=== PATIENT | male | born 1940 | race Hispanic/Latino ===

== ENCOUNTER 2018-06-21 12:40 | Emergency (ER) | payer OTHER, SELFPAY ==
--- NOTE | 2018-06-21 14:52 | RAD REPORT ---
EXAM DESCRIPTION: RAD - Chest Pa And Lat (2 Views) - 06/21/2018 2:34 pm CLINICAL HISTORY: Chest pain COMPARISON: None. TECHNIQUE: PA and lateral views of the chest were obtained. FINDINGS: The lungs are fibrotic. Prominent interstitial pattern is favored to be baseline rather th an interstitial edema or infiltrate. No large or suspicious mass. Small nipple shadows are seen. No f ailure or volume overload. Heart size is normal and central vasculature is within normal limits. N o pleural effusion or pneumothorax seen. No acute bony finding noted. No aortic abnormality. IMPRESSION: Fibrotic lung pattern with no acute cardiopulmonary process.
--- NOTE | 2018-06-21 14:53 | RAD REPORT ---
EXAM DESCRIPTION: RAD - Foot Left 3 View - 06/21/2018 2:34 pm CLINICAL HISTORY: Foot pain, toe infection COMPARISON: None. FINDINGS: No fracture, dislocation or periosteal reaction. No acute or destructive bony process. IP joint space narrowing present without spurring or erosive change. Mild first MTP joint space narrowi ng also without spurring or erosion. No significant tarsal or metatarsal finding. Patient has a small plantar spur. No air or foreign body in the soft tissues. IMPRESSION: Degenerative changes are present in the IP joints of the foot and the first MTP joint. No acute or destructive bone process seen.
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
--- NOTE | 2018-06-22 07:49 | EKG ---
Test Date: 2018-06-21 Test Time: 14:01:12 Coat Fitter: LUIS MEASUREMENT RESULTS: Intervals: Rate: 73 [place]: 138 QRSD: 90 QT: 424 QTc: 467 [place]: P: 45 NJ: 138 QRS: -11 T: -14 INTERPRETIVE STATEMENTS: Normal sinus rhythm Normal ECG No previous ECG available for comparison Electronically Signed On 06-22-18 07:46:20 GARMENT FOLDER by Kavin Middleton
== END 2018-06-21 15:37 | disposition home or self-care (01) ==
LOC: ER 12:40
DX: S90.112A Contusion of left great toe without damage to nail, initial encounter (principal); V59.40XA Driver of pick-up truck or van injured in collision with unspecified motor vehicles in traffic accident, initial encounter; I10 Essential (primary) hypertension; E11.9 Type 2 diabetes mellitus without complications; E78.5 Hyperlipidemia, unspecified; F03.90 Unspecified dementia, unspecified severity, without behavioral disturbance, psychotic disturbance, mood disturbance, and anxiety
CPT/HCPCS: 71046; 93005; 99284

== ENCOUNTER 2019-09-24 12:42 | Emergency (ER) | payer OTHER ==
[2019-09-24 15:21] VITALS: BP 148/85; TEMP 97.8; O2SAT 100
== END 2019-09-24 15:17 | disposition home or self-care (01) ==
LOC: ER 12:42
DX: S00.93XA Contusion of unspecified part of head, initial encounter (principal); S50.312A Abrasion of left elbow, initial encounter; W01.0XXA Fall on same level from slipping, tripping and stumbling without subsequent striking against object, initial encounter; Y93.01 Activity, walking, marching and hiking; Y92.008 Other place in unspecified non-institutional (private) residence as the place of occurrence of the external cause; I10 Essential (primary) hypertension; E11.9 Type 2 diabetes mellitus without complications; E78.5 Hyperlipidemia, unspecified; F03.90 Unspecified dementia, unspecified severity, without behavioral disturbance, psychotic disturbance, mood disturbance, and anxiety
CPT/HCPCS: 70450; 72125; 99284

== ENCOUNTER 2019-10-21 16:28 | Emergency (ER) | payer OTHER ==
--- NOTE | 2019-10-21 17:07 | RAD REPORT ---
EXAM DESCRIPTION: CT - Head Brain Wo Cont - 10/21/2019 4:50 pm CLINICAL HISTORY: HEADACHE, fall COMPARISON: Head C Spine Mpr Wo Con dated 09/24/2019 TECHNIQUE: Axial 5 mm thick images of the head were obtained without IV contrast. All CT scans are performed using dose optimization technique as appropriate and may include automated exposure control or mA/KV adjustment according to patient size. FINDINGS: No intracranial hemorrhage, mass, edema or shift of mid-line structures. No acute infarcti on changes seen. No cortical edema or sulcal effacement. Moderate severity atrophy and chronic ischem ic changes are present. Ventricles are in proportion. Arterial and physiologic calcifications are pre sent. No globe or orbital content abnormality. Mastoid air cells and visualized portions of the paranasal sinuses are clear. No acute bony findings. IMPRESSION: Moderate severity atrophy and chronic ischemic change with no acute intracranial finding . Findings are similar to September 23.
--- NOTE | 2019-10-21 17:42 | ER ---
Nurse's Notes [facility] Name: Nash Bach Sr Age: 79 yrs Sex: Male : 1940 Arrival Date: 10/21/2019 Time: 16:31 Bed 18 Private MD: Diagnosis: Fall on same level from slipping, tripping and stumbling;Unspecified injury of head Presentation: 10/20 16:39 Chief complaint: Patient states: Hit head during fall today. Denies LOC, no pain. ll1 Slight left buttock pain also. Transferred well. Coronavirus screen: Proceed with normal triage. Patient denies a cough. Patient denies shortness of breath or difficulty breathing. Patient denies measured and/or subjective temperature greater than 100.4F prior to today's visit. Patient denies travel on a cruise ship or to a country the [facility] currently lists as an affected area. Patient denies contact with known and/or suspected case of COVID-19. Ebola Screen: Patient denies travel to an Ebola-affected area in the 21 days before illness onset. Initial Sepsis Screen: Does the patient meet any 2 criteria? HR > 90 bpm. No. Patient's initial sepsis screen is negative. Does the patient have a suspected source of infection? No. Patient's initial sepsis screen is negative. Risk Assessment: Do you want to hurt yourself or someone else? Patient reports no desire to harm self or others. Onset of symptoms was October 21, 2019. 16:39 Method Of Arrival: Wheelchair ll1 16:39 Acuity: HILDA 3 ll1 16:42 Note trauma alert called due to age and head injury. No known blood thinners. Mechanism ll1 of Injury: Fall. 16:45 Care prior to arrival: None. Mechanism of Injury: Fall. Trauma event details: Injury ll1 occurred in the [facility]. Triage Assessment: 16:46 General: Appears in no apparent distress. Behavior is calm, cooperative, appropriate ll1 for age. Pain: Denies pain. Neuro: Level of Consciousness is awake, alert, obeys commands, Oriented to person, place, time, situation, Appropriate for age Trampoline Team Coach are weak bilaterally Moves all extremities. Full function Weakness Gait is unsteady, uses cane. Speech is normal, Facial symmetry appears normal, Pupils are PERRLA, Reports tenderness to scalp. s/p fall. Denies blurred vision dizziness, headache photophobia. Cardiovascular: No deficits noted. Respiratory: No deficits noted. GI: No deficits noted. Musculoskeletal: Circulation, motion, and sensation intact. Capillary refill < 3 seconds, Tenderness Reports pain in left buttock area. Injury Description: Head injury. Trauma Activation: Alert Physician: ED Physician; Name: nieto. henry; Notified At: ; Arrived At: Physician: General Surgeon; Name: ; Notified At: ; Arrived At: Physician: Radiology; Name: ; Notified At: ; Arrived At: Physician: Respiratory; Name: ; Notified At: ; Arrived At: Physician: Lab; Name: ; Notified At: ; Arrived At: 16:45 JOHNATHON Tracey ll1 Historical: - Allergies: 16:41 No Known Allergies; ll1 - PMHx: 16:41 Hypertension; Hyperlipidemia; Diabetes - NIDDM; Dementia; ll1 - PSHx: 16:41 Cholecystectomy; eye sx, back sx, prostate surgery; ll1 - Immunization history:: Adult Immunizations up to date. - Social history:: Smoking status: Patient/guardian denies using tobacco, the patient reports quitting approximately 20 years ago, Patient/guardian denies using alcohol, the patient reports quitting approximately [address] drugs. - Immunization history: Last tetanus immunization:. Screenin:43 Abuse screen: Denies threats or abuse. Nutritional screening: No deficits noted. ll1 Tuberculosis screening: No symptoms or risk factors identified. Fall Risk Fall in past 12 months (25 points). Ambulatory Aid- Crutches/Cane/Walker (15 pts). Gait- Weak (10 pts.). Total West Fall Scale indicates High Risk Score (45 or more points). Fall prevention measures have been instituted. Side Rails Up X 2 Placed Close to Nursing Station Frequent Obs/Assessments Occuring As available patient and family educated on Fall Prevention Program and Strategies. Primary Survey: 16:44 NO uncontrolled hemorrhage observed. A: The patient is alert. Airway: patent, No ll1 supplemental oxygen in use on arrival. Trachea midline. Breathing/Chest: Respiratory pattern: regular, Respiratory effort: spontaneous, unlabored, Breath sounds: clear, Chest inspection: symmetrical rise and fall of the chest. Circulation: Pulses: palpable right radial artery and left radial artery. Skin color: pink, Skin temperature: warm. Disability Alert. Exposure/Environment: A warming method has been applied: A warm blanket has been provided to the patient. 16:52 Reassessment. vc 16:56 Reassessment Airway Airway Patent Breathing/Chest Respiratory pattern Regular vc Respiratory effort Spontaneous Breath sounds Clear Chest inspection Symmetrical Circulation Heart tones Present Color [place] Temperature Warm Disability Alert. Assessment: 17:01 General: Appears in no apparent distress. uncomfortable, Behavior is calm, cooperative, vc appropriate for age. Pain: Complains of pain in left arm, buttocks and back of head. Neuro: Level of Consciousness is awake, alert, obeys commands, Oriented to person, place, time, situation, Appropriate for age. Cardiovascular: Capillary refill < 3 seconds Patient's skin is warm and dry. Respiratory: Airway is patent Respiratory effort is even, unlabored, Respiratory pattern is regular, symmetrical. GI: No signs and/or symptoms were reported involving the gastrointestinal system. : No signs and/or symptoms were reported regarding the genitourinary system. Derm: Skin is intact, is healthy with good turgor, Skin temperature is warm. 18:00 Reassessment: Patient appears in no apparent distress at this time. Patient and/or vc family updated on plan of care and expected duration. Pain level reassessed. Patient is alert, oriented x 3, equal unlabored respirations, skin warm/dry/pink. Patient has shuffling gate and is very unstable on his feet, will transfer to vehicle in wheelchair. Vital Signs: 16:39 BP 141 / 76; Pulse 100; Resp 18; Temp 98.7; Pulse Ox 100% ; Pain 0/10; ll1 17:45 BP 141 / 71; Pulse 77; Resp 18; Pulse Ox 100% on R/A; vc [place] Coma Score: 16:45 Eye Response: spontaneous(4). Verbal Response: oriented(5). Motor Response: obeys ll1 commands(6). Total: 15. Trauma Score (Adult): 16:45 Eye Response: spontaneous(1); Verbal Response: oriented(1); Motor Response: obeys ll1 commands(2); Systolic BP: > 89 mm Hg(4); Respiratory Rate: 10 to 29 per min(4); [place] Score: 15; Trauma Score: 12 ED Course: 16:31 Patient arrived in ED. mr 16:32 Francisco Fernández, DEAN is PHCP. pm1 16:32 Jordy Snyder MD is Attending Physician. pm1 16:40 Triage completed. ll1 16:42 Keira Cruz, RN is Primary Nurse. ph 16:42 Arm band placed on Patient placed in an exam room, on a stretcher. ll1 16:48 Patient has correct armband on for positive identification. Placed in gown. Bed in low ll1 position. Call light in reach. Side rails up X2. 16:48 Patient maintains SpO2 saturation greater than 95% on room air. ll1 16:50 CT Head Brain wo Cont In Process Unspecified. EDMS 16:58 Thermoregulation: warm blanket given to patient. vc 18:07 No provider procedures requiring assistance completed. Patient did not have IV access vc during this emergency room visit. Administered Medications: No medications were administered Intake: 18:09 PO: 0ml; IV: 0ml; Total: 0ml. vc Outcome: 17:42 Discharge ordered by . pm1 18:07 Discharged to home via wheelchair. vc 18:07 Condition: good 18:07 Discharge instructions given to patient, family, Instructed on discharge instructions, follow up and referral plans. Demonstrated understanding of instructions, follow-up care. 18:09 Patient's length of stay was not longer than 2 hours. vc 18:10 Patient left the ED. vc Signatures: Dispatcher [employer] [facility] Anne Marie Pittman mr CruzKeira, ERIKA JAMES Francisco Fernández, DEAN DRYWALL HANGER FRAMER pm1 Nimco Peoples RN RN vc Lewis, Lynsay, RN RN [facility]
--- NOTE | 2019-10-21 17:43 | EDPHYS ---
Physician Documentation [facility] Name: Nash Bach Sr Age: 79 yrs Sex: Male : 1940 Arrival Date: 10/21/2019 Time: 16:31 Bed 18 Private MD: ED Physician Jordy Snyder HPI: 10/20 16:37 This 79 yrs old Male presents to ER via Wheelchair with complaints of Fall pm1 Injury. 16:37 Details of fall: The patient fell from an upright position, while standing up from bent pm1 position. Onset: The symptoms/episode began/occurred today. Associated injuries: The patient sustained injury to the head, pain, back of head. Patient was bending down in the bathroom and he stood up and then kept going backwards. hit his head against the floor. Presenting with pain to back of his head. No LOC, neck pain, nausea, vomiting. No pain or injury elsewhere. Historical: - Allergies: 16:41 No Known Allergies; ll1 - PMHx: 16:41 Hypertension; Hyperlipidemia; Diabetes - NIDDM; Dementia; ll1 - PSHx: 16:41 Cholecystectomy; eye sx, back sx, prostate surgery; ll1 - Immunization history:: Adult Immunizations up to date. - Social history:: Smoking status: Patient/guardian denies using tobacco, the patient reports quitting approximately 20 years ago, Patient/guardian denies using alcohol, the patient reports quitting approximately [address] drugs. - Immunization history: Last tetanus immunization:. ROS: 16:37 Constitutional: Negative for fever, chills, and weight loss, Neck: Negative for injury, pm1 pain, and swelling, Cardiovascular: Negative for chest pain, palpitations, and edema, Respiratory: Negative for shortness of breath, cough, wheezing, and pleuritic chest pain, Abdomen/GI: Negative for abdominal pain, nausea, vomiting, diarrhea, and constipation, Back: Negative for injury and pain, MS/Extremity: Negative for injury and deformity, Skin: Negative for injury, rash, and discoloration. 16:37 Neuro: Positive for headache, Negative for altered mental status, dizziness, loss of consciousness, numbness, tingling, weakness. Exam: 16:37 Constitutional: This is a well developed, well nourished patient who is awake, alert, pm1 and in no acute distress. Head/Face: Normocephalic, atraumatic. Neck: Trachea midline, no thyromegaly or masses palpated, and no cervical lymphadenopathy. Supple, full range of motion without nuchal rigidity, or vertebral point tenderness. No Meningismus. Chest/axilla: Normal chest wall appearance and motion. Nontender with no deformity. No lesions are appreciated. 16:37 Back: No spinal tenderness. No costovertebral tenderness. Full range of motion. 16:37 Skin: Warm, dry with normal turgor. Normal color with no rashes, no lesions, and no evidence of cellulitis. MS/ Extremity: Pulses equal, no cyanosis. Neurovascular intact. Full, normal range of motion. 16:37 Cardiovascular: Exam negative for acute changes, Rate: normal, Rhythm: regular, Pulses: no pulse deficits are appreciated. 16:37 Respiratory: Exam negative for acute changes, respiratory distress, shortness of breath. 16:37 Abdomen/GI: Exam negative for acute changes, Inspection: abdomen appears normal, Palpation: abdomen is soft and non-tender, in all quadrants. 16:37 Neuro: Exam negative for acute changes, Orientation: is normal, Motor: is normal, moves all fours. Vital Signs: 16:39 BP 141 / 76; Pulse 100; Resp 18; Temp 98.7; Pulse Ox 100% ; Pain 0/10; ll1 17:45 BP 141 / 71; Pulse 77; Resp 18; Pulse Ox 100% on R/A; vc Anil Coma Score: 16:45 Eye Response: spontaneous(4). Verbal Response: oriented(5). Motor Response: obeys ll1 commands(6). Total: 15. Trauma Score (Adult): 16:45 Eye Response: spontaneous(1); Verbal Response: oriented(1); Motor Response: obeys ll1 commands(2); Systolic BP: > 89 mm Hg(4); Respiratory Rate: 10 to 29 per min(4); Anil Score: 15; Trauma Score: 12 MDM: 16:34 Patient medically screened. pm1 17:41 Data reviewed: vital signs. Data interpreted: Pulse oximetry: on room air is 100 %. pm1 Interpretation: normal. Counseling: I had a detailed discussion with the patient and/or guardian regarding: the historical points, exam findings, and any diagnostic results supporting the discharge/admit diagnosis, radiology results, the need for outpatient follow up, to return to the emergency department if symptoms worsen or persist or if there are any questions or concerns that arise at home. 10/20 16:37 Order name: CT Head Brain wo Cont; Complete Time: 17:39 pm1 Administered Medications: No medications were administered Disposition: 18:19 Co-signature as Attending Physician, Jordy Snyder MD. rn Disposition: 10/21/19 17:42 Discharged to Home. Impression: Unspecified injury of head, Fall on same level from slipping, tripping and stumbling. - Condition is Stable. - Discharge Instructions: Head Injury, Adult, Fall Prevention in the Home. - Medication Reconciliation Form, Thank You Letter, Antibiotic Education, Prescription Opioid Use form. - Follow up: Emergency Department; When: As needed; Reason: Worsening of condition. Follow up: Private Physician; When: 2 - 3 days; Reason: Recheck today's complaints, Continuance of care, Re-evaluation by your physician. - Problem is new. - Symptoms have improved. Signatures: Dispatcher [employer] EDMS Jordy Snyder MD MD rn Francisco Fernández, CLOUD SUBJECT MATTER EXPERT CLOUD SUBJECT MATTER EXPERT pm1 Nimco Peoples RN RN vc Lewis, Lynsay, RN RN ll1 Corrections: (The following items were deleted from the chart) 18:10 17:42 10/21/2019 17:42 Discharged to Home. Impression: Unspecified injury of headFall vc on same level from slipping, tripping and stumbling. Condition is Stable. Forms are Medication Reconciliation Form, Thank You Letter, Antibiotic Education, Prescription Opioid Use. Follow up: Emergency Department; When: As needed; Reason: Worsening of condition. Follow up: Private Physician; When: 2 - 3 days; Reason: Recheck today's complaints, Continuance of care, Re-evaluation by your physician. Problem is new. Symptoms have improved. pm1
[2019-10-21 18:16] VITALS: BP 141/76; TEMP 98.7; O2SAT 100
== END 2019-10-21 18:10 | disposition home or self-care (01) ==
LOC: ER 16:28
DX: S09.90XA Unspecified injury of head, initial encounter (principal); F03.90 Unspecified dementia, unspecified severity, without behavioral disturbance, psychotic disturbance, mood disturbance, and anxiety; W01.198A Fall on same level from slipping, tripping and stumbling with subsequent striking against other object, initial encounter; Y93.9 Activity, unspecified; Y92.9 Unspecified place or not applicable; I10 Essential (primary) hypertension
CPT/HCPCS: 70450; 99284

== ENCOUNTER 2020-07-16 10:51 | Emergency (ER) | payer OTHER ==
--- OUTSIDE RECORDS SUMMARY | 2020-07-16 10:55 | XMS REPORT | Continuity of Care Document ---
:1940 Author Organization [facility] t Address [address] [place] [address] Care Team Providers Name Role Phone Doctor Unassigned, Olivarez Attending Clinician Unavailable Norma CORONADO, Gene Attending Clinician Problems Condition Condition Condition Status Onset Resolution Last Treating Co mments Source Name Details Category Date Date Treatment Clinician Date Benign Diagnosis Active 2018-03-07 Mem oria prostatic 02:52:31 l hyperplasi Benign Herm natividad a with prostatic lower hyperplasi urinary a with tract lower symptoms urinary tract symptoms Active Diagnosis 03/07/2018 Sukhwinder Pretty DM w/o Diagnosis Active 2018-03-07 Mem oria complicati 02:52:31 l on type DM w/o [place] II, 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, uncontroll ed Active Diagnosis 03/07/2018 Sukhwinder Pretty Nocturia Diagnosis Active 2018-03-07 M emoria 02:52:31 l Nocturia Beni n Active Diagnosis 03/07/2018 Ahmed Dextermed Anxiety Diagnosis Active 2018-03-07 Me moria 02:52:31 l Anxiety [place] Active Diagnosis 03/07/2018 Ahmed Ahmed Pure Diagnosis Active 2018-03-07 Mem oria hyperchole 02:52:31 l sterolemia Pure Beni n hyperchole sterolemia Active Diagnosis 03/07/2018 Ahmed Dextermed Atheroscle Diagnosis Active 2018-03-07 Memoria r-limb&cla 02:52:31 l udic [place] Atheroscle r-limb&cla udic Active Diagnosis 03/07/2018 Sukhwinder Pretty Other Diagnosis Active 2018-03-07 Mem oria symptoms 02:52:31 l involving Other Beni n cardiovasc symptoms ular involving system cardiovasc ular system Active Diagnosis 03/07/2018 Ahmed Ahmed Allergies, Adverse Reactions, Alerts Allergy Allergy Status Severity Reaction(s) Onset Inactive Treating Comm ents Source Name Type Date Date Clinician Danielle Santos Active Info Not Yannick christ Available 01-02 l 00:00: Medications Ordered Filled Start Stop Current Ordering Indication Dosage Frequency Signature Comments Components Source Medication Medication Date Date Medication? Clinician (SIG) Name Name Lisinopril Yes Ahmed 1 tablet Me moria 03-07 Ahmed l 02:52: Metformin Yes Ahmed 1 tablet Mem oria HCl 03-07 Ahmed with meals l 02:52: Amlodipine Yes Ahmed 1 tablet Me moria Besylate 03-07 Ahmed l 02:52: Atorvastati Yes Ahmed 1 tablet M emoria n Calcium 03-07 Ahmed l 02:52: Sertraline Yes Ahmed 1 tablet Me moria HCl 03-07 Ahmed l 02:52: Vitamin D3 Yes Ahmed not Memori a Complete 03-07 Ahmed defined l 02:52: Donepezil Yes Ahmed 1 tablet Mem oria Hydrochlori 03-07 Ahmed at bedtime l de 02:52: Aspirin Yes Ahmed 1 tablet Memor ia 03-07 Ahmed l 02:52: Tamsulosin Yes Ahmed not Memori a HCl 03-07 Ahmed defined l 02:52: Cyanocobala Yes Ahmed 1 tablet M emoria min 03-07 Ahmed l 02:52: GlipiZIDE Yes Ahmed 1 tablet Mem oria 03-07 Ahmed l 02:52: Melatonin 0 Yes Ahmed 1 tablet Mem oria 03-07 Ahmed at bedtime l 02:52: as needed with food Finasteride Yes Ahmed 1 tablet M emoria 03-07 Ahmed l 02:52: Yohan 31 Vital Signs Vital Name Observation Time Observation Value Comments Source Weight 2018-01-02 16:15:00 [facility] [place] Heart Rate 2018-01-02 16:15:00 [facility] [place] Diastolic (mm Hg) 2018-01-02 16:15:00 Mem orial [place] Systolic (mm Hg) 2018-01-02 16:15:00 Yannick rial [place] Weight 2017-12-18 20:15:00 [facility] [place] Heart Rate 2017-12-18 20:15:00 [facility] [place] Diastolic (mm Hg) 2017-12-18 20:15:00 Mem orial [place] Systolic (mm Hg) 2017-12-18 20:15:00 Yannick rial [place] Procedures This patient has no known procedures. Encounters Start End Encounter Admission Attending Care Care Encounter Source Date/Time Date/Time Type Type Clinicians Facility Department ID 2020-07-06 2020-07-06 Orders Doctor LOY [id number] 00:00:00 00:00:00 Only Unassigned, JOSÉ MANUEL [id number] Olivarez [facility] [id number] [facility] 2020-03-04 2020-03-04 Telephone [facility] [id number] 00:00:00 00:00:00 Karthikeyan [place] [id number] [place] [id number] Professio [id number] [address] 2020-03-03 2020-03-03 Office [facility] [id number] 08:02:33 09:14:39 Visit Karthikeyan Mukund [place] [id number] [place] [id number] Professio [id number] [address] 2018-01-02 2018-01-02 Outpatient Sukhwinder Pretty [id number] [facility] 11:15:00 11:15:00 [facility] 2017-12-18 2017-12-18 Outpatient Sukhwinder Pretty [id number] [facility] 15:15:00 15:15:00 [facility] [place] Results This patient has no known results.
--- OUTSIDE RECORDS SUMMARY | 2020-07-16 10:55 | XMS REPORT | Continuity of Care Document ---
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 DM w/o complication Active Diagnosis 03/07/2018 Ahmed type II, uncontrolled Ahmed Nocturia Active Diagnosis 03/07/2018 Ahmed Ahmed Anxiety Active Diagnosis 03/07/2018 Ahmed Ahmed Pure Active Diagnosis 03/07/2018 Ahmed hypercholesterolemia Ahmed Atheroscler-limb&claudi Active Diagnosis 03/07/2018 Ahmed c Ahmed Other symptoms Active Diagnosis 03/07/2018 [facility] Medications Medication Details Route Status Patient Ordering Order Source Instructions Provider Date Lisinopril 1 tablet Orally [facility] 10 MG [facility] Metformin HCl 1 tablet Orally Active 1000 MG Orally Ahmed Ah med with meals Twice a day Ahmed Amlodipine 1 tablet [facility] Bes[facility] Once a day Ahmed Atorvastatin 1 tablet [facility] Calcium Once a day Ahmed Sertraline HCl 1 tablet Orally Active 100 MG Orally Ahmed med Once a day Ahmed Vitamin D3 not Orally Active - Orally Ahmed Ahmed Complete defined Ahmed Donepezil 1 tablet [facility]ally Active 10 [facility] Hydrochloride at bedtime Once a day Ahme d Aspirin 1 tablet Orally Active 81 MG Orally Ahmed Ahmed Once a day Ahmed Tamsulosin HCl not Orally Active 0.4 MG Orally Ahmed m ed defined Ahmed Cyanocobalamin 1 tablet Orally Active 1000 MCG Orally Ahmed Ahmed Once a day Ahmed GlipiZIDE 1 tablet Orally Active 5 MG Orally Ahmed Ahmed Once a day Ahmed Melatonin 1 tablet Orally Active 5 MG Orally Ahmed Ahmed at bedtime Once a day Ahmed as needed with food Finasteride 1 tablet Orally Active 5 MG Orally Ahmed med Once a day Ahmed Allergies, Adverse Reactions, Alerts Substance Category Reaction Severity Reaction Status Date Comments S ource type Reported N.K.D.A. Adverse Info Not Adverse Active Ahme d Reaction Available Reaction 8 Ahme d Immunizations No Data Provided for This Section Results No Data Provided for This Section Pathology Reports No Data Provided for This Section Diagnostic Reports No Data Provided for This Section Consultation Notes No Data Provided for This Section Discharge Summaries No Data Provided for This Section History and Physicals No Data Provided for This Section Vital Signs Vital Sign Value Date Comments Source Weight 147 01/02/2018 Ahmed Ahmed Heart Rate 72 01/02/2018 Ahmed Ahmed Diastolic (mm Hg) 80 01/02/2018 Ahmed Ahme d Systolic (mm Hg) 142 01/02/2018 Ahmed Ahmed Weight 150 12/18/2017 Ahmed Ahmed Heart Rate 74 12/18/2017 Ahmed Ahmed Diastolic (mm Hg) 66 12/18/2017 Ahmed Ahme d Systolic (mm Hg) 124 12/18/2017 Ahmed Ahmed Encounters No Data Provided for This Section Procedures No Data Provided for This Section Assessment and Plan No Data Provided for This Section Plan of Care No Data Provided for This Section Social History No Data Provided for This Section Family History No Data Provided for This Section Advance Directives No Data Provided for This Section Functional Status No Data Provided for This Section
--- OUTSIDE RECORDS SUMMARY | 2020-07-16 10:55 | XMS REPORT | Summary of Care ---
:1940 Author Organization [facility] - Health Address [address] [place] [address] Care Team Providers Name Role Phone Pcp, Patient Does Not Have A Primary Care Provider +[id number] Encounter Details Date Type Department Care Team Description 07/06/2020 Orders Only [facility] Doctor Unassigned, No [address] [facility] [place] [address] [address] [place] [address] Allergies No Known Allergiesdocumented as of this encounter (statuses as of 07/06/2020) Medications Medication Sig Dispensed Refills Start Date End Date Status amLODIPine 5 mg tablet TAKE ONE TABLET BY 0 02/03/20 20 Active MOUTH AT BEDTIME FOR HEART/BLOOD PRESSURE finasteride 5 mg TAKE ONE TABLET BY 0 08/13/2019 Active tablet MOUTH DAILY FOR PROSTATE. *DO NOT CRUSH* levoFLOXacin 500 mg SHERINE 1 TABLET BY 0 02/14/2020 Active tablet MOUTH ONCE DAILY FOR 7 DAYS lisinopriL 10 mg TAKE ONE TABLET BY 0 02/03/2020 Active tablet MOUTH EVERY DAY FOR HEART/ BLOOD PRESSURE metFORMIN 1,000 mg TAKE ONE TABLET BY 0 02/03/2020 Active tablet MOUTH TWICE A DAY *FOR DIABETES* oxybutynin 15 mg 24 hr TAKE ONE TABLET BY 0 08/30/19 20 Active tablet MOUTH TWICE A DAY FOR BLADDER. *DO NOT CRUSH* SERTraline 100 mg TAKE ONE AND 0 09/02/2019 Active tablet ONE-HALF TABLETS BY MOUTH EVERY MORNING documented as of this encounter (statuses as of 07/06/2020) Active Problems Not on filedocumented as of this encounter (statuses as of 07/06/2020) Social History Tobacco Use Types Packs/Day Years Used Date Never Smoker Smokeless Tobacco: Never Used Sex Assigned at Date Recorded Not on file documented as of this encounter Last Filed Vital Signs Not on filedocumented in this encounter Plan of Treatment Health Maintenance Due Date Last Done Comments DTaP,Tdap,and Td Vaccines (1 - 01/29/1959 Tdap) Zoster Recombinant Vaccine 01/29/1990 (SHINGRIX) (1 of 2) Medicare Wellness Visit 01/29/2005 PNEUMOCOCCAL VACCINES 65+ (1 of 1 01/29/2005 - PPSV23) INFLUENZA VACCINE (#1) 2020 03/28/2017, 03/29/2016, 04/14/2015, Additional history exists Depression Screening 03/03/2021 03/03/2020 documented as of this encounter Procedures Procedure Name Priority Date/Time Associated Diagnosis Comme nts COGNITIVE ASSESSMENT Routine 07/06/2020 12:01 AM EFFICIENCY MANAGER documented in this encounter Results Not on filedocumented in this encounter Insurance Payer Benefit Plan / Subscriber ID Effective Phone Address T ype Group Dates GLADYS NACHO/GUNNER [id number] 2020-[facility] documented as of this encounter
--- NOTE | 2020-07-16 11:50 | RAD REPORT ---
EXAM DESCRIPTION: CT - Head C Spine Mpr Wo Con - 07/16/2020 11:29 am CLINICAL HISTORY: Head and neck injury status post fall. Head and neck pain COMPARISON: September 2019 TECHNIQUE: Computed axial tomography of the head and cervical spine was obtained. Sagittal and coronal reconstruction was performed. All CT scans are performed using dose optimization technique as appropriate and may include automated exposure control or mA/KV adjustment according to patient size. FINDINGS: Cerebral and cerebellar atrophy. An intracranial bleed is not seen. Stable prominence of the ventricles. . An extra-axial fluid collec tion is not noted.Fluid within the visualized sinuses and mastoids is not seen A cervical fracture is not visualized. No dislocation is noted. IMPRESSION: No acute intracranial abnormality is seen. A cervical fracture is not visualized. If the patient continues to have symptoms to suggest intracra nial /spinal cord pathology then MRI would be recommended
[2020-07-16 16:27] LABS: Absolute Lymphocytes (CBC) 0.9 K/uL (0.7-4.9); Basophils % 0.3 % (0-1.3); Hematocrit 33.4 % (39.6-49.0); Lymphocytes % 12.6 % (15.3-44.8); MPV 8.4 fL (7.6-11.3); RBC Red Blood Cell Count 3.88 M/uL (4.33-5.43)
[2020-07-16 16:54] LABS: Potassium 3.2 mmol/L (3.5-5.1)
--- NOTE | 2020-07-16 17:41 | ER ---
Nurse's Notes [facility] Name: Nash Bach Sr Age: 80 yrs Sex: Male : 1940 Arrival Date: 07/16/2020 Time: 10:57 Bed 6 Private MD: Diagnosis: Other slipping, tripping and stumbling and falls;Superficial injury of head Presentation: 07/16 11:10 Chief complaint: Patient's son or daughter states: He had a fall last night, he's been ca1 falling a lot, he falls 3 - 4 times a week. He loses his balance a lot. 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 He fell last night, and again this morning. He hit his head this morning, he landed on the floor, landed on his back and hit his head. He c/o pain everywhere. I think more his back, his butt area and his head more. Pt is on ASA. 11:10 Method Of Arrival: Wheelchair ca1 11:14 Acuity: HILDA 2 ca1 11:14 Coronavirus screen: Client denies travel out of the [place] in the last 14 days. At this ca1 time, the client does not indicate any symptoms associated with coronavirus-19. Ebola Screen: Patient negative for fever greater than or equal to 101.5 degrees Fahrenheit, and additional compatible Ebola Virus Disease symptoms Patient denies exposure to infectious person. Patient denies travel to an Ebola-affected area in the 21 days before illness onset. No symptoms or risks identified at this time. Initial Sepsis Screen: Does the patient meet any 2 criteria? No. Patient's initial sepsis screen is negative. Does the patient have a suspected source of infection? No. Patient's initial sepsis screen is negative. Risk Assessment: Do you want to hurt yourself or someone else? Patient reports no desire to harm self or others. Onset of symptoms was July 16, 2020. 11:20 Care prior to arrival:. Care prior to arrival: None. Mechanism of Injury: Fall from ca1 standing position. Trauma event details: Injury occurred in the [facility], Injury occurred: at home. Injury occurred: July 16, 2020 Injury occurred at: 10:30. Triage Assessment: 11:17 General: Appears in no apparent distress. comfortable, Behavior is calm, cooperative. ca1 Neuro: Level of Consciousness is awake, alert, obeys commands, Oriented to person, situation. 17:45 Pain: Unable to use pain scale. Does not appear to understand pain scale. bp Trauma Activation: Alert Physician: ED Physician; Name: ; Notified At: ; Arrived At: Physician: General Surgeon; Name: ; Notified At: ; Arrived At: Physician: Radiology; Name: ; Notified At: ; Arrived At: Physician: Respiratory; Name: ; Notified At: ; Arrived At: Physician: Lab; Name: ; Notified At: ; Arrived At: Historical: - Allergies: 11:17 No Known Allergies; ca1 - PMHx: 11:17 Dementia; Diabetes - NIDDM; Hyperlipidemia; Hypertension; ca1 - PSHx: 11:17 Cholecystectomy; eye sx, back sx, prostate surgery; ca1 - Immunization history:: Pneumococcal vaccine is up to date, Flu vaccine is not up to date. - Social history:: Smoking status: Patient denies any tobacco usage or history of. - Immunization history: Last tetanus immunization: - up to date. Screenin:00 Abuse screen: Denies threats or abuse. Denies injuries from another. Tuberculosis bp screening: No symptoms or risk factors identified. 17:43 Nutritional screening: No deficits noted. Fall Risk Fall in past 12 months (25 points). bp Secondary diagnosis (15 points) dementia, IV access (20 points). Ambulatory Aid- None/Bed Rest/Nurse Assist (0 pts). Gait- Normal/Bed Rest/Wheelchair (0 pts) Mental Status- Overestimates/Forgets Limitations (15 pts.). Total West Fall Scale indicates High Risk Score (45 or more points). Fall prevention measures have been instituted. Side Rails Up X 2 Placed Close to Nursing Station Frequent Obs/Assessments Occuring Family Present and informed to notify staff if the need to leave the bedside As available patient and family educated on Fall Prevention Program and Strategies. Primary Survey: 11:21 NO uncontrolled hemorrhage observed. A: The patient is alert. Airway: patent. ca1 Breathing/Chest: Respiratory pattern: regular, Respiratory effort: spontaneous, unlabored, Chest inspection: symmetrical rise and fall of the chest. Circulation: Skin color: pink, Skin temperature: warm, dry. Disability Alert. Exposure/Environment: All clothing and personal items were removed. Forensic evidence collection is not deemed to be indicated at this time. Items placed in patient belonging bag. There is no evidence of uncontrolled external bleeding. No obvious injuries are noted at this time. 17:44 Reassessment Breathing/Chest Respiratory pattern Regular Respiratory effort Spontaneous bp Unlabored. Assessment: 11:20 Reassessment: Notified Dr. Palma. VO CT head C spine. ca1 11:22 Reassessment: PT to CT at this time. ca1 11:38 Reassessment: states, "he is diabetic and hasn't eaten today. So I am concerned ca1 with his blood sugar" Instructed to keep pt NPO for now until seen by provider and results back. Checked BGL at 133. 17:43 Reassessment: PT D/C HOME AMBULATORY, DX WITH SPONTANEOUS FALL. bp Vital Signs: 11:14 BP 147 / 79; Pulse 78; Resp 16 S; Temp 97.4(TE); Pulse Ox 99% on R/A; Weight 56.7 kg ca1 (R); Height 5 ft. 5 in. (165.10 cm) (R); 17:15 BP 174 / 77; Pulse 72; Resp 16; Pulse Ox 99% ; bp 11:14 Body Mass Index 20.80 (56.70 kg, 165.10 cm) ca1 [place] Coma Score: 11:22 Eye Response: spontaneous(4). Verbal Response: oriented(5). Motor Response: obeys ca1 commands(6). Total: 15. Trauma Score (Adult): 11:22 Eye Response: spontaneous(1); Verbal Response: oriented(1); Motor Response: obeys ca1 commands(2); Systolic BP: > 89 mm Hg(4); Respiratory Rate: 10 to 29 per min(4); Anil Score: 15; Trauma Score: 12 ED Course: 10:57 Patient arrived in ED. am4 11:14 Triage completed. ca1 11:17 Arm band placed on right wrist. EKG completed in triage. Results shown to MD. EKG ca1 completed in triage. Results shown to MD. 11:29 CT Head C Spine In Process Unspecified. EDMS 13:58 Petros Magdaleno PA is PHCP. jmm 13:58 Ramu Palma MD is Attending Physician. jmm 15:15 Ramu Palma MD is Attending Physician. kdr 15:19 Franky Rose, RN is Primary Nurse. bp 16:00 Inserted saline lock: 20 gauge in right antecubital area, using aseptic technique. jd3 Blood collected. 17:00 Patient has correct armband on for positive identification. Bed in low position. Call bp light in reach. Side rails up X2. Adult w/ patient. 17:42 IV discontinued, intact, bleeding controlled, No redness/swelling at site. Pressure bp dressing applied. Patient maintains SpO2 saturation greater than 95% on room air. 17:43 No provider procedures requiring assistance completed. bp 17:44 IV discontinued, intact, bleeding controlled, No redness/swelling at site. Pressure bp dressing applied. 17:45 Thermoregulation: warm blanket given to patient. bp Administered Medications: 17:41 Drug: Potassium Chloride 40 mEq Route: PO; bp 17:42 Follow up: Response: No adverse reaction bp Intake: 17:45 PO: 0ml; Total: 0ml. bp Output: 17:45 Urine: 0ml; Total: 0ml. bp Outcome: 17:41 Discharge ordered by . kdr 17:43 Discharged to home ambulatory. bp 17:43 Condition: stable 17:43 Discharge instructions given to patient, family, Instructed on discharge instructions, follow up and referral plans. 17:45 Patient's length of stay in the Emergency Department was greater than 2 hours. bp 17:58 Patient left the ED. bp Signatures: Dispatcher [employer] EDMS Ramu Palma MD MD kdr Mickail, Joel, PA PA jmm Davies, Jonathon, RN RN jd3 Peltier, Brian, RN RN bp Acob, Cheryl, RN RN [facility] Enid Linares Corrections: (The following items were deleted from the chart) 16:50 16:30 Inserted saline lock: 20 gauge in right antecubital area, using aseptic jd3 technique. Blood collected. jd3
--- NOTE | 2020-07-16 17:42 | EDPHYS ---
Physician Documentation [facility] Name: Nash Bach Sr Age: 80 yrs Sex: Male : 1940 Arrival Date: 07/16/2020 Time: 10:57 Bed 6 Private MD: ED Physician Ramu Palma HPI: 07/16 15:58 This 80 yrs old Male presents to ER via Wheelchair with complaints of Fall kdr Injury. 15:58 Details of fall: The patient fell from an upright position, while standing, from seated kdr position, out of a chair. Onset: The symptoms/episode began/occurred gradually, at an unknown time. Has become increasingly frequent in the last few weeks. Was seen here recently for the same problem. Associated injuries: The patient sustained injury to the head. Severity of symptoms: At their worst the symptoms were very mild, in the emergency department the symptoms are unchanged. The patient has experienced similar episodes in the past, several times, chronically, today's symptoms are similar. The patient has been recently seen by a physician: The patient has been recently seen at the [facility] Emergency Department, a couple of weeks ago. Historical: - Allergies: 11:17 No Known Allergies; ca1 - PMHx: 11:17 Dementia; Diabetes - NIDDM; Hyperlipidemia; Hypertension; ca1 - PSHx: 11:17 Cholecystectomy; eye sx, back sx, prostate surgery; ca1 - Immunization history:: Pneumococcal vaccine is up to date, Flu vaccine is not up to date. - Social history:: Smoking status: Patient denies any tobacco usage or history of. - Immunization history: Last tetanus immunization: - up to date. ROS: 15:58 Constitutional: Negative for fever, chills, and weight loss, Eyes: Negative for injury, kdr pain, redness, and discharge, ENT: Negative for injury, pain, and discharge, Neck: Negative for injury, pain, and swelling, Cardiovascular: Negative for chest pain, palpitations, and edema, Respiratory: Negative for shortness of breath, cough, wheezing, and pleuritic chest pain, Abdomen/GI: Negative for abdominal pain, nausea, vomiting, diarrhea, and constipation, Back: Negative for injury and pain, : Negative for injury, bleeding, discharge, and swelling, MS/Extremity: Negative for injury and deformity, Skin: Negative for injury, rash, and discoloration, Psych: Negative for depression, anxiety, suicide ideation, homicidal ideation, and hallucinations, Allergy/Immunology: Negative for hives, rash, and allergies, Endocrine: Negative for neck swelling, polydipsia, polyuria, polyphagia, and marked weight changes, Hematologic/Lymphatic: Negative for swollen nodes, abnormal bleeding, and unusual bruising. 15:58 Neuro: Positive for head injury, Negative for altered mental status, loss of consciousness, seizure activity, syncope, near syncope. Exam: 15:58 Constitutional: This is a well developed, well nourished patient who is awake, alert, kdr and in no acute distress. Head/Face: Normocephalic, atraumatic. Eyes: Pupils equal round and reactive to light, extra-ocular motions intact. Lids and lashes normal. Conjunctiva and sclera are non-icteric and not injected. Cornea within normal limits. Periorbital areas with no swelling, redness, or edema. Neck: Trachea midline, no thyromegaly or masses palpated, and no cervical lymphadenopathy. Supple, full range of motion without nuchal rigidity, or vertebral point tenderness. No Meningismus. Chest/axilla: Normal chest wall appearance and motion. Nontender with no deformity. No lesions are appreciated. Cardiovascular: Regular rate and rhythm with a normal S1 and S2. No gallops, murmurs, or rubs. Normal PMI, no JVD. No pulse deficits. Respiratory: Lungs have equal breath sounds bilaterally, clear to auscultation and percussion. No rales, rhonchi or wheezes noted. No increased work of breathing, no retractions or nasal flaring. Abdomen/GI: Soft, non-tender, with normal bowel sounds. No distension or tympany. No guarding or rebound. No evidence of tenderness throughout. Back: No spinal tenderness. No costovertebral tenderness. Full range of motion. Skin: Warm, dry with normal turgor. Normal color with no rashes, no lesions, and no evidence of cellulitis. MS/ Extremity: Pulses equal, no cyanosis. Neurovascular intact. Full, normal range of motion. Neuro: Awake and alert, GCS 15, oriented to person, place, time, and situation. Cranial nerves II-XII grossly intact. Motor strength 5/5 in all extremities. Sensory grossly intact. Cerebellar exam normal. Normal gait. Psych: Awake, alert, with orientation to person, place and time. Behavior, mood, and affect are within normal limits. Vital Signs: 11:14 BP 147 / 79; Pulse 78; Resp 16 S; Temp 97.4(TE); Pulse Ox 99% on R/A; Weight 56.7 kg ca1 (R); Height 5 ft. 5 in. (165.10 cm) (R); 17:15 BP 174 / 77; Pulse 72; Resp 16; Pulse Ox 99% ; bp 11:14 Body Mass Index 20.80 (56.70 kg, 165.10 cm) ca1 [place] Coma Score: 11:22 Eye Response: spontaneous(4). Verbal Response: oriented(5). Motor Response: obeys ca1 commands(6). Total: 15. Trauma Score (Adult): 11:22 Eye Response: spontaneous(1); Verbal Response: oriented(1); Motor Response: obeys ca1 commands(2); Systolic BP: > 89 mm Hg(4); Respiratory Rate: 10 to 29 per min(4); Anil Score: 15; Trauma Score: 12 MDM: 15:58 Data reviewed: vital signs, nurses notes, lab test result(s), radiologic studies. kdr Counseling: I had a detailed discussion with the patient and/or guardian regarding: the historical points, exam findings, and any diagnostic results supporting the discharge/admit diagnosis, lab results, radiology results, the need for outpatient follow up. 17:41 Patient medically screened. kdr 07/16 11:49 Order name: Glucose, Ancillary Testing; Complete Time: 13:58 EDMS 07/16 15:33 Order name: CBC with Diff; Complete Time: 17:25 kdr 07/16 11:20 Order name: CT Head C Spine; Complete Time: 13:58 ca1 07/16 15:33 Order name: Chem 7; Complete Time: 17:25 kdr Administered Medications: 17:41 Drug: Potassium Chloride 40 mEq Route: PO; bp 17:42 Follow up: Response: No adverse reaction bp Disposition: 07/16/20 17:41 Discharged to Home. Impression: Other slipping, tripping and stumbling and falls, Superficial injury of head. - Condition is Stable. - Discharge Instructions: Fall Prevention in the Home, [id number], Head Injury, Adult, [id number]. - Medication Reconciliation Form, Thank You Letter form. - Follow up: Private Physician; When: 2 - 3 days; Reason: If symptoms return, Further diagnostic work-up, Recheck today's complaints, Continuance of care, Re-evaluation by your physician. - Problem is an ongoing problem. - Symptoms have improved. Signatures: Dispatcher [employer] EDMS Ramu Palma MD MD kdr Mickail, Joel, PA PA jmm Peltier, Brian, RN RN bp Josiane Chan RN RN ca1 Corrections: (The following items were deleted from the chart) 17:58 17:41 07/16/2020 17:41 Discharged to Home. Impression: Other slipping, tripping and bp stumbling and falls; Superficial injury of head. Condition is Stable. Forms are Medication Reconciliation Form, Thank You Letter, Antibiotic Education, Prescription Opioid Use. Follow up: Private Physician; When: 2 - 3 days; Reason: If symptoms return, Further diagnostic work-up, Recheck today's complaints, Continuance of care, Re-evaluation by your physician. Problem is an ongoing problem. Symptoms have improved. kdr
[2020-07-16] MEDS ORDERED: POTASSIUM 25 MEQ EFFERV TAB ONE (17:56)
[2020-07-16 21:32] VITALS: TEMP 97.4; O2SAT 99
[2020-07-16 21:33] VITALS: BP 174/77
== END 2020-07-16 17:58 | disposition home or self-care (01) ==
LOC: ER 10:51
DX: S09.90XA Unspecified injury of head, initial encounter (principal); W07.XXXA Fall from chair, initial encounter; F03.90 Unspecified dementia, unspecified severity, without behavioral disturbance, psychotic disturbance, mood disturbance, and anxiety; E11.9 Type 2 diabetes mellitus without complications; E78.5 Hyperlipidemia, unspecified; I10 Essential (primary) hypertension
CPT/HCPCS: 36415; 70450; 72125; 80048; 82947; 85025; 99284; G0390

== ENCOUNTER 2020-08-23 10:55 | Inpatient (IN) | payer OTHER ==
--- OUTSIDE RECORDS SUMMARY | 2020-08-23 10:58 | XMS REPORT | Continuity of Care Document ---
:[address] [facility] t Address [address] [place] [address] Care Team Providers Name Role Phone Doctor Unassigned, Halbur Attending Clinician Unavailable Norma CORONADO, Gene Attending Clinician Problems Condition Condition Condition Status Onset Resolution Last Treating Co mments Source Name Details Category Date Date Treatment Clinician Date Other Diagnosis Active 2018-03-07 Mem oria symptoms 02:52:31 l involving Other Beni n cardiovasc symptoms ular involving system cardiovasc ular system Active Diagnosis 03/07/2018 Sukhwinder Renteriamed Benign Diagnosis Active 2018-03-07 Mem oria prostatic 02:52:31 l hyperplasi Benign Herm natividad a with prostatic lower hyperplasi urinary a with tract lower symptoms urinary tract symptoms Active Diagnosis 03/07/2018 Sukhwinder Pretty DM w/o Diagnosis Active 2018-03-07 Mem oria complicati 02:52:31 l on type DM w/o Yohan II, 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, uncontroll ed Active Diagnosis 03/07/2018 Ahmed Ahmed Nocturia Diagnosis Active 2018-03-07 M emoria 02:52:31 l Nocturia Beni n Active Diagnosis 03/07/2018 Ahmed Dextermed Anxiety Diagnosis Active 2018-03-07 Me moria 02:52:31 l Anxiety Fulda Active Diagnosis 03/07/2018 Ahmed Ahmed Pure Diagnosis Active 2018-03-07 Mem oria hyperchole 02:52:31 l sterolemia Pure Beni n hyperchole sterolemia Active Diagnosis 03/07/2018 Sukhwinder Pretty Atheroscle Diagnosis Active 2018-03-07 Memoria r-limb&cla 02:52:31 l udic Yohan Atheroscle r-limb&cla udic Active Diagnosis 03/07/2018 Ahmed Ahmed Allergies, Adverse Reactions, Alerts Allergy Allergy Status Severity Reaction(s) Onset Inactive Treating Comm ents Source Name Type Date Date Clinician Danielle Santos Active Info Not Yannick christ Available 01-02 l 00:00: Yohan 00 Medications Ordered Filled Start Stop Current Ordering Indication Dosage Frequency Signature Comments Components Source Medication Medication Date Date Medication? Clinician (SIG) Name Name Lisinopril Yes Ahmed 1 tablet Me moria 03-07 Ahmed l 02:52: Fulda 31 Metformin Yes Ahmed 1 tablet Mem oria HCl 03-07 Ahmed with meals l 02:52: Fulda 31 Amlodipine Yes Ahmed 1 tablet Me moria Besylate 03-07 Ahmed l 02:52: Atorvastati Yes Ahmed 1 tablet M emoria n Calcium 03-07 Ahmed l 02:52: Yohan 31 Sertraline Yes Ahmed 1 tablet Me moria HCl 03-07 Ahmed l 02:52: Fulda 31 Vitamin D3 Yes Ahmed not Memori a Complete 03-07 Ahmed defined l 02:52: Yohan 31 Donepezil Yes Ahmed 1 tablet Mem oria Hydrochlori 03-07 Ahmed at bedtime l de 02:52: Yohan Aspirin Yes Ahmed 1 tablet Memor ia 03-07 Ahmed l 02:52: Tamsulosin Yes Ahmed not Memori a HCl 03-07 Ahmed defined l 02:52: Fulda 31 Cyanocobala Yes Ahmed 1 tablet M emoria min 03-07 Ahmed l 02:52: Fulda 31 GlipiZIDE Yes Ahmed 1 tablet Mem oria 03-07 Ahmed l 02:52: Yohan Melatonin 0 Yes Ahmed 1 tablet Mem oria 03-07 Ahmed at bedtime l 02:52: as needed Yohan with food Finasteride Yes Ahmed 1 tablet M emoria 03-07 Ahmed l 02:52: Yohan 31 Vital Signs Vital Name Observation Time Observation Value Comments Source Weight 2018-01-02 16:15:00 [facility] Heart Rate 2018-01-02 16:15:00 [facility] Diastolic (mm Hg) 2018-01-02 16:15:00 Mem orial [place] Systolic (mm Hg) 2018-01-02 16:15:00 Yannick rial Fulda Weight 2017-12-18 20:15:00 [facility] Heart Rate 2017-12-18 20:15:00 [facility] Diastolic (mm Hg) 2017-12-18 20:15:00 Mem orial Fulda Systolic (mm Hg) 2017-12-18 20:15:00 Yannick rial Yohan Procedures This patient has no known procedures. Encounters Start End Encounter Admission Attending Care Care Encounter Source Date/Time Date/Time Type Type Clinicians Facility Department ID 2020-07-06 2020-07-06 Orders Doctor LOY [id number] 00:00:00 00:00:00 Only Unassigned, JOSÉ MANUEL [id number] [place] [facility] [id number] [facility] [place] 2] 2020-03-04 2020-03-04 Telephone [facility] [id number] 00:00:00 00:00:00 Karthikeyan [place] [id number] [place] [id number] Professio [id number] [address] 2020-03-03 2020-03-03 Office [facility] [id number] 08:02:33 09:14:39 Visit Karthikeyan Mukund [place] [id number] [place] [id number] Professio [id number] [address] 2018-01-02 2018-01-02 Outpatient Sukhwinder Pretty [id number] [facility] 11:15:00 11:15:00 [facility] 2017-12-18 2017-12-18 Outpatient Sukhwinder Pretty [id number] [facility] 15:15:00 15:15:00 [facility] [place] Results This patient has no known results.
--- NOTE | 2020-08-23 12:01 | RAD REPORT ---
EXAM DESCRIPTION: CT - CTHCSPWOC - 08/23/2020 11:48 am CLINICAL HISTORY: Trauma, head and neck injury. Fall, headache COMPARISON: Head C Spine Mpr Wo Con dated 07/16/2020; Head C Spine Mpr Wo Con dated 09/24/2019 TECHNIQUE: Axial 5 mm thick images of the head were obtained. Axial 2 mm thick images of the cervical spine were obtained with sagittal and coronal reconstruction images generated and reviewed. All CT scans are performed using dose optimization technique as appropriate and may include automated exposure control or mA/KV adjustment according to patient size. FINDINGS: CT HEAD WITHOUT CONTRAST: No acute hemorrhage, hydrocephalus or extra-axial collection is identified.Moderate generalized brain atrophy is present with mild periventricular and deep white matter chronic microvascular ischemic ch anges.No areas of brain edema or midline shift. The paranasal sinuses and mastoids are clear.The calvarium is intact. CT CERVICAL SPINE WITHOUT CONTRAST: No fracture or subluxation.Mild mid and lower cervical degenerative changes are present.No prevertebr al soft tissues swelling is identified. IMPRESSION: No acute intracranial or cervical spine findings. Mild middle and lower cervical degenerative changes.
--- NOTE | 2020-08-23 12:19 | RAD REPORT ---
EXAM DESCRIPTION: RAD - Hip Right 2 View - 08/23/2020 12:06 pm CLINICAL HISTORY: PAIN COMPARISON: No comparisons FINDINGS: The bones are diffusely demineralized. No fracture, dislocation or AVN pattern is observed .
--- NOTE | 2020-08-23 12:19 | RAD REPORT ---
EXAM DESCRIPTION: RAD - Chest Single View - 08/23/2020 12:08 pm CLINICAL HISTORY: Fall Chest pain. COMPARISON: Chest Pa And Lat (2 Views) dated 06/21/2018 FINDINGS: Portable technique limits examination quality. The lungs are grossly clear. The heart is normal in size. No displaced fractures. IMPRESSION: No acute intrathoracic process suspected.
[2020-08-23 12:55] LABS: Absolute Lymphocytes (CBC) 0.4 K/uL (0.7-4.9); Basophils % 0.3 % (0-1.3); Hematocrit 33.6 % (39.6-49.0); Lymphocytes % 3.8 % (15.3-44.8); RBC Red Blood Cell Count 3.94 M/uL (4.33-5.43)
[2020-08-23 13:07] LABS: Protime INR 1.09
[2020-08-23 13:15] LABS: Bilirubin Direct 0.3 mg/dL (0-0.2); Bilirubin Total 1.1 mg/dL (0.2-1.0); Magnesium 1.6 mg/dL (1.8-2.4); Potassium 3.2 mmol/L (3.5-5.1); Protein, Total 6.5 g/dL (6.4-8.2); Troponin (Emerg Dept Use Only) 0.05 ng/mL (0.0-0.045)
[2020-08-23 13:17] LABS: Blood Morphology Comment NOT SEEN (NOT SEEN); Platelet Estimate ADEQ; White Blood Cell Scan OK (OK)
--- NOTE | 2020-08-23 14:52 | ER ---
Nurse's Notes [facility] Name: Nash Bach Sr Age: 80 yrs Sex: Male : 1940 Arrival Date: 08/23/2020 Time: 10:58 Bed 6 Private MD: Diagnosis: Altered mental status, unspecified;Superficial injury of head;Elevated troponin Presentation: 08/23 11:10 Chief complaint: Spouse and/or significant other states: pt fell last night while going iw to bathroom, hit his head on tile floor , found him on floor , pt was unable to get himself up, now has not been acting like his normal self, acting more confused and drowsy, has hx of dementia, unknown how long he was on the floor. Care prior to arrival: None. Mechanism of Injury: Fall from standing position. Trauma event details: Injury occurred in the [facility], Injury occurred: at home. Injury occurred: August 23, 2020. 11:10 Acuity: HILDA 2 iw 11:10 Method Of Arrival: Wheelchair iw 11:15 Coronavirus screen: At this time, the client does not indicate any symptoms associated iw with coronavirus-19. Ebola Screen: Patient negative for fever greater than or equal to 101.5 degrees Fahrenheit, and additional compatible Ebola Virus Disease symptoms Patient denies exposure to infectious person. Patient denies travel to an Ebola-affected area in the 21 days before illness onset. No symptoms or risks identified at this time. Initial Sepsis Screen: Does the patient meet any 2 criteria? No. Patient's initial sepsis screen is negative. Does the patient have a suspected source of infection? No. Patient's initial sepsis screen is negative. Risk Assessment: Do you want to hurt yourself or someone else? Patient reports no desire to harm self or others. Onset of symptoms was August 23, 2020. Triage Assessment: 11:20 General: Appears in no apparent distress. comfortable, slender, well groomed, Behavior bp is calm. Pain: Denies pain. EENT: No deficits noted. Neuro: Level of Consciousness is awake, obeys commands, Oriented to person. Cardiovascular: Rhythm is sinus rhythm. Respiratory: No deficits noted. GI: No signs and/or symptoms were reported involving the gastrointestinal system. : No signs and/or symptoms were reported regarding the genitourinary system. Derm: No deficits noted. Musculoskeletal: No deficits noted. Historical: - Allergies: 11:15 No Known Allergies; iw - Home Meds: 11:15 amlodipine 5 mg tab 1 tab once daily [Active]; cholecalciferol (vitamin D3) 50,000 unit iw oral cap [Active]; lisinopril 10 mg Oral tab 1 tab once daily [Active]; metformin 1,000 mg Oral tab 1 tab 2 times per day [Active]; oxybutynin chloride 15 mg Oral tr24 [Active]; sertraline 100 mg oral tab 1 tab once daily [Active]; - PMHx: 11:15 Dementia; Diabetes - NIDDM; Hyperlipidemia; Hypertension; iw - PSHx: 11:15 Cholecystectomy; eye sx, back sx, prostate surgery; iw - Immunization history: Last tetanus immunization:. - Social history:: Smoking status: Patient denies any tobacco usage or history of. Screenin:20 Abuse screen: Denies threats or abuse. Denies injuries from another. Nutritional bp screening: No deficits noted. Tuberculosis screening: No symptoms or risk factors identified. Fall Risk None identified. Assessment: 11:20 General: SEE TRIAGE NOTE. bp 12:30 Reassessment: No changes from previously documented assessment. Patient and/or family bp updated on plan of care and expected duration. Pain level reassessed. Patient is alert, oriented x 3, equal unlabored respirations, skin warm/dry/pink. ALL CURRENT ORDERS COMPLETE. 13:30 Reassessment: No changes from previously documented assessment. Patient and/or family bp updated on plan of care and expected duration. Pain level reassessed. Patient is alert, oriented x 3, equal unlabored respirations, skin warm/dry/pink. 15:00 Reassessment: No changes from previously documented assessment. Patient and/or family bp updated on plan of care and expected duration. Pain level reassessed. ADMIT INITIATED. 16:30 Reassessment: No changes from previously documented assessment. Patient and/or family bp updated on plan of care and expected duration. Pain level reassessed. PT RESTING QUIETLY. 20:00 General: Appears in no apparent distress. Neuro: Level of Consciousness is awake, ea alert. Cardiovascular: Patient's skin is warm and dry. Respiratory: Airway is patent Respiratory effort is even, unlabored, Respiratory pattern is regular, symmetrical. 21:01 Reassessment: Patient and/or family updated on plan of care and expected duration. Pain ea level reassessed. Patient is alert, oriented x 3, equal unlabored respirations, skin warm/dry/pink. Pt admitted to second floor, report called to receiving nurse. Pt left ED via stretcher per tech. Pt tolerating well. Vital Signs: 11:15 BP 136 / 70; Pulse 88; Resp 16; Temp 98.4; Pulse Ox 100% on R/A; iw 12:30 BP 163 / 84; Pulse 81; Resp 14; Pulse Ox 100% ; bp 13:35 BP 177 / 70; Pulse 100; Resp 19; Pulse Ox 100% ; bp 14:30 BP 133 / 62; Pulse 96; Resp 13; Pulse Ox 100% ; bp 15:30 BP 150 / 70; Pulse 85; Resp 12; Pulse Ox 98% ; bp 16:30 BP 145 / 69; Pulse 92; Resp 13; Pulse Ox 98% ; bp 21:02 BP 150 / 70; Pulse 90; Resp 14; Pulse Ox 99% ; ea ED Course: 10:58 Patient arrived in ED. bg2 11:13 Triage completed. iw 11:15 Arm band placed on. iw 11:19 Francisco Fernández, DEAN is PHCP. pm1 11:19 Bairon Angulo MD is Attending Physician. pm1 11:20 Patient has correct armband on for positive identification. Bed in low position. Call bp light in reach. Side rails up X2. Adult w/ patient. 11:23 Franky Rose, RN is Primary Nurse. bp 11:49 CT Head C Spine In Process Unspecified. EDMS 12:38 Inserted saline lock: 22 gauge in right antecubital area, using aseptic technique. bp Blood collected. 14:51 Mahesh Snyder MD is Hospitalizing Provider. pm1 15:37 CT Abd/Pelvis - IV Contrast Only In Process Unspecified. EDMS 20:59 No provider procedures requiring assistance completed. Patient admitted, IV remains in ea place. Administered Medications: 20:00 Drug: Lasix 20 mg Route: IVP; Site: right antecubital; rv 21:00 Follow up: Response: No adverse reaction ea 20:49 Drug: Magnesium Sulfate 1 grams Route: IVPB; Infused Over: 1 hrs; Site: right rv antecubital; 20:59 Follow up: Response: No adverse reaction; IV Status: Completed infusion benito Outcome: 14:51 Decision to Hospitalize by Provider. pm1 21:00 Admitted to Med/surg accompanied by tech, room 220, with chart, Report called to Josefina oliver RN 21:00 Condition: stable 21:00 Instructed on the need for admit, Demonstrated understanding of instructions, follow-up care. 21:27 Patient left the ED. benito Signatures: Dispatcher [employer] EDAmalia Valenzuela, RN RN Manda Sena 2 Francisco Fernández, DOORS PREFITTER DOORS PREFITTER pm1 Josefina Aguila RN RN ea Peltier, Brian, RN RN bp Michael Knight, RN RN rv
--- NOTE | 2020-08-23 14:52 | EDPHYS ---
Physician Documentation [facility] Name: Nash Bach Sr Age: 80 yrs Sex: Male : 1940 Arrival Date: 08/23/2020 Time: 10:58 Bed 6 Private MD: ED Physician Bairon Angulo HPI: 08/23 11:45 This 80 yrs old Male presents to ER via Wheelchair with complaints of Fall pm1 Injury. 11:45 The patient presents with decreased mental status. Onset: The symptoms/episode pm1 began/occurred 2:20 this AM. Possible causes: possibly from fall. Associated signs and symptoms: Pertinent positives: headache, right hip pain. Current symptoms: In the emergency department the patient's symptoms None. Patient is currently not complaining of any pain. Patient's baseline: Neuro: alert but confused, Motor: no deficits, Ambulation: walks with assist only, uses walker, The patient has a previous history of Dementia. Patient with a history of multiple falls. Patient got up to use the restroom at 200 this AM. found him on the floor of the bathroom at 220 when she got up to urinate. Patient assisted him to bed. Patient was able to use his walker while she walked behind him. reports that he falls often without any injury or problems but this time he has been acting altered from his baseline dementia. Patient initially reported pain to the back left side of his head from a contusion and right hip pain. Historical: - Allergies: 11:15 No Known Allergies; iw - Home Meds: 11:15 amlodipine 5 mg tab 1 tab once daily [Active]; cholecalciferol (vitamin D3) 50,000 unit iw oral cap [Active]; lisinopril 10 mg Oral tab 1 tab once daily [Active]; metformin 1,000 mg Oral tab 1 tab 2 times per day [Active]; oxybutynin chloride 15 mg Oral tr24 [Active]; sertraline 100 mg oral tab 1 tab once daily [Active]; - PMHx: 11:15 Dementia; Diabetes - NIDDM; Hyperlipidemia; Hypertension; iw - PSHx: 11:15 Cholecystectomy; eye sx, back sx, prostate surgery; iw - Immunization history: Last tetanus immunization:. - Social history:: Smoking status: Patient denies any tobacco usage or history of. ROS: 11:45 Constitutional: Negative for fever, chills, and weight loss, Cardiovascular: Negative pm1 for chest pain, palpitations, and edema, Respiratory: Negative for shortness of breath, cough, wheezing, and pleuritic chest pain, Abdomen/GI: Negative for abdominal pain, nausea, vomiting, diarrhea, and constipation, Back: Negative for injury and pain, Skin: Negative for injury, rash, and discoloration. 11:45 Neuro: Positive for headache, contusion of the left parietal area. 11:45 Unable to obtain ROS due to baseline dementia, is answering all the questions. Patient only answered when questioned regarding his name, location, and birthday. answered correctly. Looks at his to answer all other questions. 11:45 MS/extremity: Positive for pain, of the right hip, Negative for decreased range of pm1 motion, able to walk with his walker after fall . Exam: 11:45 Constitutional: This is a well developed, well nourished patient who is awake, alert, pm1 and in no acute distress. 11:45 Head/face: Noted is no obvious of injury or deformity except contusion, that is superficial, of the left side of the back of head. 11:45 Neck: External neck: tenderness, is not appreciated, C-spine: vertebral tenderness, is not appreciated, ROM/movement: is normal. 11:45 Chest/axilla: Inspection: normal, Palpation: is normal, no tenderness. 11:45 Cardiovascular: Exam negative for acute changes, Rate: normal, Rhythm: regular, Pulses: no pulse deficits are appreciated, Edema: 2+ edema to level of bilateral pedal edema. 11:45 Respiratory: Exam negative for acute changes, respiratory distress, shortness of breath. 11:45 Abdomen/GI: Inspection: abdomen appears normal, Palpation: abdomen is soft and non-tender, in all quadrants. 11:45 Back: vertebral tenderness, is not appreciated. 11:45 Musculoskeletal/extremity: Extremities: all appear grossly normal, with no appreciated pain with palpation, ROM: full passive range of motion, in the right hip and left hip. 11:45 Neuro: Orientation: to person, place, Mentation: able to follow commands, Motor: moves all fours. Vital Signs: 11:15 BP 136 / 70; Pulse 88; Resp 16; Temp 98.4; Pulse Ox 100% on R/A; iw 12:30 BP 163 / 84; Pulse 81; Resp 14; Pulse Ox 100% ; bp 13:35 BP 177 / 70; Pulse 100; Resp 19; Pulse Ox 100% ; bp 14:30 BP 133 / 62; Pulse 96; Resp 13; Pulse Ox 100% ; bp 15:30 BP 150 / 70; Pulse 85; Resp 12; Pulse Ox 98% ; bp 16:30 BP 145 / 69; Pulse 92; Resp 13; Pulse Ox 98% ; bp 21:02 BP 150 / 70; Pulse 90; Resp 14; Pulse Ox 99% ; ea MDM: 11:19 Patient medically screened. pm1 14:49 Data reviewed: vital signs. Data interpreted: Pulse oximetry: on room air is 100 %. pm1 Interpretation: normal. Counseling: I had a detailed discussion with the patient and/or guardian regarding: the historical points, exam findings, and any diagnostic results supporting the discharge/admit diagnosis, lab results, radiology results, the need for further work-up and treatment in the hospital. 15:02 Physician consultation: Mahesh Snyder MD was contacted at 15:02, regarding admission, pm1 patient's condition, would like further tests performed, CT scan, CPK. 03 11:29 Order name: Basic Metabolic Panel pm1 08/23 11:29 Order name: CBC with Diff pm1 08/23 11:29 Order name: LFT's pm1 08/23 11:29 Order name: Magnesium pm1 08/23 11:29 Order name: NT PRO-BNP; Complete Time: 13:44 pm1 08/23 11:29 Order name: PT-INR; Complete Time: 13:44 pm1 08/23 11:29 Order name: Troponin (emerg Dept Use Only); Complete Time: 13:44 pm1 08/23 11:29 Order name: Urine Microscopic Only; Complete Time: 15:12 pm1 08/23 11:30 Order name: Basic Metabolic Panel; Complete Time: 13:44 EDMS 08/23 11:30 Order name: CBC with Automated Diff; Complete Time: 13:44 EDMS 08/23 11:30 Order name: Liver (Hepatic) Function; Complete Time: 13:44 EDMS 08/23 11:30 Order name: Magnesium; Complete Time: 13:44 EDMS 08/23 13:17 Order name: CBC Smear Scan; Complete Time: 13:44 EDMS 08/23 14:04 Order name: Urine Dipstick--Ancillary (enter results); Complete Time: 15:12 eb 08/23 11:29 Order name: XRAY Chest (1 view) pm08/23 11:29 Order name: EKG; Complete Time: 11:31 pm1 08/23 11:29 Order name: Cardiac monitoring; Complete Time: 12:20 pm1 08/23 11:29 Order name: EKG - Nurse/Tech; Complete Time: 12:20 pm1 08/23 11:29 Order name: CT Head C Spine; Complete Time: 12:17 pm1 08/23 11:29 Order name: Hip Right 2 View XRAY pm08/23 12:19 Order name: RAD; Complete Time: 12:19 EDMS 08/23 12:19 Order name: RAD; Complete Time: 12:20 EDMS 08/23 15:01 Order name: CPK; Complete Time: 16:09 pm1 08/23 15:01 Order name: CT Abd/Pelvis - IV Contrast Only; Complete Time: 16:09 pm1 08/23 15:28 Order name: SARS-COV-2 RT PCR; Complete Time: 16:09 EDMS 08/23 18:15 Order name: Lipase 08/23 18:59 Order name: Lipase; Complete Time: 19:52 EDMS 08/23 11:29 Order name: IV Saline Lock; Complete Time: 12:39 pm1 08/23 11:29 Order name: Labs collected and sent; Complete Time: 12:39 pm1 08/23 11:29 Order name: O2 Per Protocol; Complete Time: 12:20 pm1 08/23 11:29 Order name: O2 Sat Monitoring; Complete Time: 12:20 pm1 08/23 11:29 Order name: Urine Dipstick-Ancillary (obtain specimen); Complete Time: 15:00 pm1 Administered Medications: 20:00 Drug: Lasix 20 mg Route: IVP; Site: right antecubital; rv 21:00 Follow up: Response: No adverse reaction ea 20:49 Drug: Magnesium Sulfate 1 grams Route: IVPB; Infused Over: 1 hrs; Site: right rv antecubital; 20:59 Follow up: Response: No adverse reaction; IV Status: Completed infusion ea Disposition: 08/24 19:56 Co-signature as Attending Physician, Bairon Angulo MD I agree with the assessment and lee plan of care. Disposition: 08/23/20 14:51 Hospitalization ordered by Mahesh Snyder for Observation. Preliminary diagnosis are Altered mental status, unspecified, Superficial injury of head, Elevated troponin. - Bed requested for Telemetry/MedSurg (observation). - Status is Observation. ea - Condition is Stable. - Problem is new. - Symptoms have improved. Signatures: Dispatcher [employer] EDTX Bairon Angulo MD MD cha Williams, Irene, RN ERIKA iw Rody Wood, RN ERIKA cg Francisco Fernández, POLE PEELING MACHINE OPERATOR HELPER POLE PEELING MACHINE OPERATOR HELPER pm1 Josefina Aguila RN Franky Huang ea, RN RN Michael Salgado, RN RN rv Acob, Josiane, RN RN ca1 Corrections: (The following items were deleted from the chart) 08/23 15:35 14:34 CORONAVIRUS+MR.LAB.BRZ ordered. [facility] 17:15 11:45 Constitutional: Negative for fever, chills, and weight loss, Cardiovascular: pm1 Negative for chest pain, palpitations, and edema, Respiratory: Negative for shortness of breath, cough, wheezing, and pleuritic chest pain, Abdomen/GI: Negative for abdominal pain, nausea, vomiting, diarrhea, and constipation, Back: Negative for injury and pain, MS/Extremity: Negative for injury and deformity, Skin: Negative for injury, rash, and discoloration, pm1 17:29 11:45 Cardiovascular: Exam negative for acute changes, Rate: normal, Rhythm: regular, pm1 Pulses: no pulse deficits are appreciated, pm1 20:44 14:51 Hospitalization Ordered by Mahesh Snyder MD for Observation. Preliminary cg diagnosis is Altered mental status, unspecified; Superficial injury of head; Elevated troponin. Bed requested for Telemetry/MedSurg (observation). Status is Observation. Condition is Stable. Problem is new. Symptoms have improved. pm1 21:01 20:44 08/23/2020 14:51 Hospitalization Ordered by Mahesh Snyder MD for Observation. cg Preliminary diagnosis is Altered mental status, unspecified; Superficial injury of head; Elevated troponin. Bed requested for Telemetry/MedSurg (observation). Status is Observation. Condition is Stable. Problem is new. Symptoms have improved. 21:27 21:01 08/23/2020 14:51 Hospitalization Ordered by Mahesh nSyder MD for Observation. ea Preliminary diagnosis is Altered mental status, unspecified; Superficial injury of head; Elevated troponin. Bed requested for Telemetry/MedSurg (observation). Status is Observation. Condition is Stable. Problem is new. Symptoms have improved.
[2020-08-23 15:08] LABS: Urine Blood NEGATIVE (NEG); Urine Glucose 1+ (NEG); Urine Protein 1+ (NEG)
[2020-08-23 15:08] LABS: Urine Amorphous Sediment 1+ /HPF (NONE SEEN); Urine Bacteria <20 /HPF (NONE SEEN); Urine RBC <5 /HPF (NONE SEEN)
--- NOTE | 2020-08-23 15:55 | RAD REPORT ---
EXAM DESCRIPTION: CTAbdomen Pelvis W Contrast - 08/23/2020 3:30 pm CLINICAL HISTORY: Abdominal pain. ABD PAIN COMPARISON: No comparisons TECHNIQUE: Biphasic CT imaging of the abdomen and pelvis was performed with 100 ml non-ionic IV cont rast. All CT scans are performed using dose optimization technique as appropriate and may include automated exposure control or mA/KV adjustment according to patient size. FINDINGS: The lung bases are clear.Cholecystectomy. The liver demonstrates mild to moderate intrahepatic biliary dilatation. Pancreatic duct appears dila ruby with multiple pancreatic calcifications seen most compatible with chronic pancreatitis. There is soft tissue near the ampulla of Vater present measuring 22 mm. No bowel obstruction, free air, free fluid or abscess. The appendix is not identified as a discrete structure, however, no secondary findings of appendicitis are identified. No evidence of significan t lymphadenopathy. Lumbosacral degenerative changes. IMPRESSION: Moderate intrahepatic biliary dilatation is seen with pancreatic duct also dilated. Soft tissue density in the region of the ampulla of Vater is present which could represent a mass. Sugges t followup direct visualization in this region with ERCP. Chronic pancreatitis.
--- NOTE | 2020-08-23 20:24 | P.HP ---
Certification for Inpatient Patient admitted to: Observation With expected LOS: <2 Midnights Patient will require the following post-hospital care: None Practitioner: I am a practitioner with admitting privileges, knowledge of patient current condition, hospital course, and medical plan of care. Services: Services provided to patient in accordance with Admission requirements found in Title 42 Section 412.3 of the Code of Federal Regulations <Dl Perez - Last Filed: 08/23/20 20:18> Patient History Date of Service: 08/23/20 Primary Care Provider: Dr. trevor mcginnis Reason for admission: syncope/fall History of Present Illness: 80-year-old male with history of diabetes mellitus type 2, hyperten nik, hyperlipidemia, dementia presents emergency department after sustaining a fall last night with sustained confusion since then. reports patient walked to the bathroom and no one night in November and found him on the floor approximately 20 min later. Patient currently awake, alert, oriented x2 but lucid, patient reports he remembers falling but does not recall why, denies loss of consciousness, denies any chest pain, shortness of breath, dizziness, headache, palpitations surrounding the incident. Patient did hit his head on the ground, CT head/neck/abdomen pelvis negative for acute findings, chest x-ray unremarkable hip x-ray unremarkable labs significant for white blood cell count 11.3 hemoglobin 11.7 hematocrit 33.6 troponin 0.05. BNP 2016 patient with no history of CHF. states patient is slightly more confused than normal but has improved since this morning in regard to his mental status. ED provider wishes to admit patient for further evaluation and management. When I saw the patient in the ER he was awake, alert, oriented x2 without focal neurological deficits noted, tolerating p.o.. - Past Medical/Surgical History -: Diabetes mellitus type 2 -: Hypertension -: Hyperlipidemia -: Dementia -: Cholecystectomy -: Back surgery -: Eye surgery -: Prostatectomy Psychosocial/ Personal History: Patient is retired, lives at home with his - Family History Family History: Reviewed- Non-Contributory - Social History Smoking Status: Never smoker Alcohol use: No CD- Drugs: No Caffeine use: Yes Place of Residence: Home <Dl Perez - Last Filed: 08/23/20 20:18> Date of Service: 08/24/20 <Mahesh Snyder - Last Filed: 08/24/20 16:40> Allergies No Known Allergies Allergy (Verified 08/23/20 18:49) Review of Systems Unremarkable <Dl Perez - Last Filed: 08/23/20 20:18> Physical Examination - Physical Exam General: Alert, In no apparent distress, Oriented x2 HEENT: Atraumatic, PERRLA, Mucous membr. moist/pink, EOMI, Sclerae nonicteric Neck: Supple, 2+ carotid pulse no bruit, No LAD, Without JVD or thyroid abnormality Respiratory: Clear to auscultation bilaterally, Normal air movement Cardiovascular: Regular rate/rhythm, Normal S1 S2, Edema (1+ pitting edema bilateral lower extremity) Capillary refill: <2 Seconds Gastrointestinal: Normal bowel sounds, No tenderness Musculoskeletal: No tenderness Integumentary: No rashes Neurological: Normal speech, Normal strength at 5/5 x4 extr, Normal tone, Sensation intact, Normal affect - Studies Laboratory Data (last 24 hrs) 08/23/20 12:38: Lipase 80 08/23/20 12:38: PT 12.6 H, INR 1.09 08/23/20 12:38: WBC 11.30 H, Hgb 11.7 L, Hct 33.6 L, Plt Count 261 08/23/20 12:38: Sodium 143, Potassium 3.2 L, BUN 16, Creatinine 1.16, Glucose 197 H, Magnesium 1.6 L, Total Bilirubin 1.1 H, AST 7 L, ALT 15, Alkaline Phosphatase 130 H <Dl Perez - Last Filed: 08/23/20 20:18> - Studies Laboratory Data (last 24 hrs) 08/23/20 12:38: Lipase 80 <Mahesh Snyder - Last Filed: 08/24/20 16:40> Assessment and Plan - Plan Assessment Fall-syncope versus mechanical Altered mental status complicated with history of dementia Elevated BNP, pedal edema, elevated troponin suspect underlying CHF with demand ischemia Diabetes mellitus type 2 Hypertension Hyperlipidemia Plan Fall-syncope versus mechanical: Patient not sure why he fell but denies any chest pain, dizziness, headache, palpitations surrounding event, denies LOC. No focal neurological deficits at this time will obtain echocardiogram, MRI stroke protocol, PT evaluation, trend troponins. DVT prophylaxis Lovenox 40 mg subcutaneous once daily. Altered mental status complicated with history of dementia: Patient awake, keenly alert, oriented x2 states this has improved since this morning not sure about patient's baseline but this is likely close to it. MRI stroke protocol for the morning. Elevated BNP, pedal edema, elevated troponin suspect underlying CHF with demand ischemia: Suspect underlying CHF, continue with Lasix 20 IV daily, echocardiogr am ordered, cardiology consult in place. Fluid restriction. Diabetes mellitus type 2: A.c. HS Accu-Cheks, sliding scale insulin therapy. A1c with morning lab. Hypertension: Obtain and continue home med Hyperlipidemia: Obtain and continue home med, lipid panel with morning labs Discharge Plan: Home Plan to discharge in: 24 Hours - Advance Directives Does patient have a Living Will: No Does patient have a Durable POA for Healthcare: No - Code Status/Comfort Care Code Status Assessed: Yes (Full code) Critical Care: No Time Spent Managing Pts Care (In Minutes): 55 <Dl Perez - Last Filed: 08/23/20 20:18> - Plan Plan of care reviewed as noted above by Dl Perez. Patient with multiple falls over the last several months. Family report progressive pankaj body dementia MRI ordered. PT ordered soft tissue density noted near pancreas with ductal dilatation. will obtain further imaging. may need GI <Mahesh Snyder - Last Filed: 08/24/20 16:40>
[2020-08-23] MEDS ORDERED: FUROSEMIDE 20 MG/ 2ML VIAL ONE (20:36)
[2020-08-23] MEDS ORDERED: MAGNESIUM SULFATE 1 gm IVPB 1 GM/100 ML BAG IV ONE (20:37)
[2020-08-23 21:58] VITALS: BMI 18.2
[2020-08-23] MEDS ORDERED: ACETAMINOPHEN 500 MG TAB PO PRN (22:26)
[2020-08-23] MEDS ORDERED: ONDANSETRON 4 MG/2 ML VIAL IV PRN (22:26)
[2020-08-23] MEDS: INSULIN -REGULAR HUMAN 50 UNIT/0.5 ML ML SQ SCH (23:18)
[2020-08-24] MEDS ORDERED: HYDRALAZINE HCL 20 MG/ML VIAL IV ONE (00:47)
[2020-08-24 04:37] LABS: Basophils % 0.3 % (0-1.3); Hematocrit 30.7 % (39.6-49.0); Lymphocytes % 7.6 % (15.3-44.8); MPV 8.1 fL (7.6-11.3); RBC Red Blood Cell Count 3.64 M/uL (4.33-5.43)
[2020-08-24 05:16] LABS: Albumin 2.6 g/dL (3.4-5.0); Protein, Total 5.8 g/dL (6.4-8.2); Thyroid Stimulating Hormone 1.63 uIU/mL (0.360-3.740); Troponin I 0.08 ng/mL (0.0-0.045)
[2020-08-24 05:47] LABS: Potassium 2.6 mmol/L (3.5-5.1)
[2020-08-24] MEDS ORDERED: KCL 20 MEQ/100 mL IVPB 20 MEQ/100 ML BAG IV SCH (06:00)
[2020-08-24] MEDS: INSULIN -REGULAR HUMAN 50 UNIT/0.5 ML ML SQ SCH ×4 (07:30→21:00)
[2020-08-24] MEDS ORDERED: NA CHLORIDE 0.9% 500 ML IV SCH (08:00)
[2020-08-24] MEDS ORDERED: POTASSIUM 25 MEQ EFFERV TAB PO ONE (09:00)
--- NOTE | 2020-08-24 09:16 | RAD REPORT ---
EXAM DESCRIPTION: US - Abdomen Exam Complete - 08/24/2020 8:52 am CLINICAL HISTORY: RUQ - pancreas - dilated duct / mass COMPARISON: Abdomen Pelvis W Contrast dated 08/23/2020 FINDINGS: Gallbladder is not identified believed to be absent may be tightly contracted and obscured by bowel. Common bile duct is dilated to 12 mm with no common duct stone identified. Intrahepatic bi liary tree dilatation is also present. Liver and spleen are normal size. No focal hepatic parenchymal finding. No portal vein abnormality id entified. The pancreatic duct is dilated. No mass seen in the body or tail of the pancreas. In the expected loc ation of the ampulla of Vater in the pancreatic head there is a 3 centimeter soft tissue mass project ing into the lumen of the duodenum. This matches the CT finding. No hydronephrosis or suspicious mass in either kidney. Aorta and IVC show no significant finding. No ascites or bulky lymphadenopathy. IMPRESSION: Approximately 3 centimeter soft tissue mass in the head of the pancreas/ampulla of Vater . This mass is the correlate to the CT finding and would be the etiology for the pancreatic duct and bi liary tree dilatation. Nonvisualization of the gallbladder.
[2020-08-24] MEDS: KCL 20 MEQ/100 mL IVPB 20 MEQ/100 ML BAG IV SCH ×2 (09:44→10:00)
[2020-08-24] MEDS: METFORMIN HCL 500 MG TAB PO SCH ×2 (09:45→17:53)
[2020-08-24] MEDS: FOLIC ACID 1 MG TABLET PO SCH (09:46)
[2020-08-24] MEDS: lisinopriL 10 MG TAB PO SCH (09:46)
[2020-08-24] MEDS: SERTRALINE HCL 100 MG TAB PO SCH (09:47)
[2020-08-24] MEDS: AMLODIPINE 5 MG TAB PO SCH (09:47)
[2020-08-24] MEDS: OXYBUTYNIN ER 5 MG TAB PO SCH (09:47)
[2020-08-24] MEDS: ASPIRIN EC 81 MG TAB PO SCH (09:48)
[2020-08-24] MEDS: ENOXAPARIN 40 MG/0.4 ML SQ SCH (09:48)
[2020-08-24] MEDS: FUROSEMIDE 20 MG/ 2ML VIAL IV SCH (09:48)
[2020-08-24] MEDS: VITAMIN D 1000 UNIT TAB PO SCH (09:48)
--- NOTE | 2020-08-24 14:51 | ECHO ---
HEIGHT: 5 ft 5 in WEIGHT: 109 lb 9 oz DATE OF STUDY: 08/24/[address]: Dl Perez NP 2-DIMENSIONAL: YES M.MODE: YES DOPPLER: YES COLOR FLOW: YES TDS: YES PORTABLE: DEFINITY: BUBBLE STUDY: DIAGNOSIS: FALL/ SYNCOPE, PEDAL EDEMA, ELEVATED TROPONIN & BLOOD CARDIAC HISTORY: CATHERIZATION: NO SURGERY: NO PROSTHETIC VALVE: NO PACEMAKER: NO MEASUREMENTS (cm) DIASTOLIC (NORMALS) SYSTOLIC (NORMALS) IVSd 1.0 (0.6-1.2) LA Diam 2.0 (1.9-4.0) LVEF 55-60% LVIDd 2.9 (3.5-5.7) LVIDs 1.8 (2.0-3.5) %FS 39% LVPWd 1.1 (0.6-1.2) Ao Diam 2.5 (2.0-3.7) 2 DIMENSIONAL ASSESSMENT: RIGHT ATRIUM: NORMAL LEFT ATRIUM: NORMAL RIGHT VENTRICLE: NORMAL LEFT VENTRICLE: NORMAL TRICUSPID VALVE: NORMAL MITRAL VALVE: NORMAL PULMONIC VALVE: NORMAL AORTIC VALVE: NORMAL PERICARDIAL EFFUSION: NONE AORTIC ROOT: NORMAL LEFT VENTRICULAR WALL MOTION: SEE BELOW DOPPLER/COLOR FLOW: SEE BELOW COMMENTS: LEFT VENTRICULAR EJECTION FRACTION APPEARS NORMAL BUT WINDOWS OTHERWISE NORMAL. LIMITED STUDY, RECOMMEND REPEAT CONTRAST STUDY TO BETTER EVALUATE EJECTION FRACTION AND WALL MOTION. GRADE ONE DIASTOLIC DYSFUNCTION. TECHNOLOGIST: TOM SALINAS
--- NOTE | 2020-08-24 17:37 | P.PN ---
Subjective Date of Service: 08/24/20 Primary Care Provider: Dr. trevor mcginnis Chief Complaint: syncope/fall Subjective: No new changes (improvement in mentation per . States lots of issues have been worseniing over the last few weeks. Multiple falls over 2-3 months. He seems to stop responding, eyes roll back, then falls. Has been told this is due to progression of his lewy body dementia) Review of Systems 10-point ROS is otherwise unremarkable Physical Examination - Vital Signs Temperature: 97.4 F Blood Pressure: 140/65 Pulse: 75 Respirations: 18 Pulse Ox (%): 97 - Studies Laboratory Data (last 24 hrs) 08/23/20 12:38: Lipase 80 Assessment & Plan Physician Review Additional Text: Physical Exam Gen: alert, oriented to self and place, NAD HEENT: MMM, EOMI, sclera anicteric CV: regular rate and rhythm, 1+ BLE edema Pulm: CTAB, no wheeze/rales/rhonchi, on room air Abd: soft, mild RUQ/epigastric tenderness Ext: 1+ BLE edema, no rash, no lesions Neuro: normal speech, normal strength b/l upper/lower extremities. +dementia and with some confusion Problem List: Fall-syncope versus mechanical Altered mental status complicated with history of dementia Elevated BNP, pedal edema, elevated troponin suspect underlying CHF with demand ischemia Pancreatic and Hepatic duct dilatation, soft tissue density near pancreas Diabetes mellitus type 2 Hypertension Hyperlipidemia -patient does not recall why/how he fell. reports these are episodes he has had for ~2 months, worked up by his doctors at [place] -daughter states she was told this is due to progression of lewy body dementia - as well as his globus sensation, weight loss, and confusion -even so, they state patient wasn't at baseline yesterday, has some improvement today -MRI ordered, not done yet, no focal neuro defecits on my exam today. -echo ordered to eval for CHF, continue lasix -CT abd/pelvis noted ductal dilatation and soft tissue density near pancrea -RUQ U/S ordered this AM - 3 cm mass at head of pancreas with dilatation of pancreatic duct and hepatic duct -patient and family (,daughter, [id number]) all report this is new information to them -alk phos minimally elevated on admission, Tbili: 1.1 - stable today -concerned for pancreatic cancer / if this is new, may continue to get worse with ductal obstruction, as well as contributing to patient's weight loss / loss of appetite, and overall failure to thrive -recommend further evaluation of mass, given the dilatation of duct, recommend transfer to tertiary care center where GI / ERCP or other testing can be done that is not available here -discussed with family, in agreement Time Spent Managing Pts Care (In Minutes): 40
--- NOTE | 2020-08-24 21:46 | RAD REPORT ---
EXAM DESCRIPTION: MRI - Brain W/Wo Cont - 08/24/2020 9:10 pm CLINICAL HISTORY: FALL,SYNCOPE,AMS Headache, drowsiness, CVA symptomology COMPARISON: MRA Head Wo Cont dated 08/24/2020; MRA Neck W/Wo Cont dated 08/24/2020; Head C Spine Mpr Wo Con dated 08/23/2020 TECHNIQUE: Multi-sequence, multiplanar MR imaging of the brain was performed with contrast. FINDINGS: There is evidence of bilateral subdural hygromas which appear to have developed since the comparative CT. Maximum thickness on the left measures 6 mm, maximum thickness on the right measures 7 mm.Moderate generalized brain atrophy is noted. Mild periventricular and deep white matter chronic microvascular ischemic changes. No midline shift.. No intracranial mass. DWI is negative for acute CV A. The midline structures are normally formed. Mastoid air cells and paranasal sinuses are clear. Postcontrast images shows thin diffuse pattern of dural enhancement. IMPRESSION: Negative for acute CVA. Development of small bilateral subdural hygromas with thin diffuse dural enhancement likely indicates intracranial hypotension.This can be secondary to recent trauma.
--- NOTE | 2020-08-24 21:49 | RAD REPORT ---
EXAM DESCRIPTION: MRI - MRA Head Wo Cont - 08/24/2020 9:09 pm CLINICAL HISTORY: fall/syncope/ams CVA COMPARISON: Head Brain Wo Cont dated 10/21/2019 FINDINGS: 3D noncontrast [id number] MR angiography of the [place] was performed. No aneurysm, flow-limiting stenosis or vascular malformation is seen. Forward flow seen in codominant vertebral arteries. The visualized dural venous sinuses appear patent. IMPRESSION: No significant flow abnormality of the [place] is identified.
--- NOTE | 2020-08-24 21:52 | RAD REPORT ---
EXAM DESCRIPTION: MRI - MRA Neck W/Wo Cont - 08/24/2020 9:10 pm CLINICAL HISTORY: FALL, SYNCOPE , AMS Headache, CVA symptomology COMPARISON: No comparisons FINDINGS: Contrast enhance 2D [id number] MR angiography of the neck vessels was performed. A left aortic arch is present. Both subclavian arteries common carotid arteries are widely patent. Mild narrowing is seen of the left carotid bulb resulting in estimated stenosis of 50% based on NASCE T criteria. No significant right carotid bulb narrowing is seen. Antegrade flow seen in both vertebral arteries. IMPRESSION: Mild narrowing of the left carotid bulb is seen estimated at 50% based on NASCET criteri a.
[2020-08-24] MEDS: MELATONIN 5 MG TABLET PO SCH (21:53)
[2020-08-25] MEDS ORDERED: POTASSIUM 25 MEQ EFFERV TAB PO ONE ×2 (00:07→07:30)
[2020-08-25 06:39] LABS: Absolute Lymphocytes (CBC) 1.1 K/uL (0.7-4.9); Basophils % 0.3 % (0-1.3); Hematocrit 28.7 % (39.6-49.0); Lymphocytes % 13.5 % (15.3-44.8); MPV 8.3 fL (7.6-11.3); RBC Red Blood Cell Count 3.37 M/uL (4.33-5.43)
[2020-08-25 07:21] LABS: Albumin 2.4 g/dL (3.4-5.0); Magnesium 1.9 mg/dL (1.8-2.4); Potassium 3.5 mmol/L (3.5-5.1); Protein, Total 5.3 g/dL (6.4-8.2)
[2020-08-25] MEDS: INSULIN -REGULAR HUMAN 50 UNIT/0.5 ML ML SQ SCH ×4 (07:30→21:00)
[2020-08-25] MEDS: METFORMIN HCL 500 MG TAB PO SCH ×3 (08:00→16:26)
[2020-08-25] MEDS: OXYBUTYNIN ER 5 MG TAB PO SCH (10:25)
[2020-08-25] MEDS: AMLODIPINE 5 MG TAB PO SCH (10:26)
[2020-08-25] MEDS: FOLIC ACID 1 MG TABLET PO SCH (10:26)
[2020-08-25] MEDS: ASPIRIN EC 81 MG TAB PO SCH (10:26)
[2020-08-25] MEDS: SERTRALINE HCL 100 MG TAB PO SCH (10:26)
[2020-08-25] MEDS: FUROSEMIDE 20 MG/ 2ML VIAL IV SCH (10:27)
[2020-08-25] MEDS: ENOXAPARIN 40 MG/0.4 ML SQ SCH (10:27)
[2020-08-25] MEDS: VITAMIN D 1000 UNIT TAB PO SCH (10:27)
[2020-08-25] MEDS: lisinopriL 10 MG TAB PO SCH (10:27)
--- NOTE | 2020-08-25 14:35 | P.PN ---
Subjective Date of Service: 08/25/20 Primary Care Provider: Dr. trevor mcginnis Chief Complaint: syncope/fall Patient currently has no complain. He stated he ambulated in the hallway twice with physical therapy today. He is tolerating diet. Physical Examination - Vital Signs Temperature: 98.8 F Blood Pressure: 112/58 Pulse: 80 Respirations: 17 Pulse Ox (%): 100 - Physical Exam General: Alert, In no apparent distress, Oriented x3 Neck: Supple, JVD not distended Respiratory: Clear to auscultation bilaterally, Normal air movement Cardiovascular: No edema, Regular rate/rhythm, Normal S1 S2 Gastrointestinal: Normal bowel sounds, Soft and benign, Non-distended, No tenderness Musculoskeletal: No swelling, No tenderness Integumentary: No rashes Neurological: Other (No focal motor deficit.) Assessment And Plan Physician Review Additional Text: Physical Exam Gen: alert, oriented to self and place, NAD HEENT: MMM, EOMI, sclera anicteric CV: regular rate and rhythm, 1+ BLE edema Pulm: CTAB, no wheeze/rales/rhonchi, on room air Abd: soft, mild RUQ/epigastric tenderness Ext: 1+ BLE edema, no rash, no lesions Neuro: normal speech, normal strength b/l upper/lower extremities. +dementia and with some confusion Problem List: Fall-syncope versus mechanical Altered mental status complicated with history of dementia Elevated BNP, pedal edema, elevated troponin suspect underlying CHF with demand ischemia Pancreatic and Hepatic duct dilatation, soft tissue density near pancreas Diabetes mellitus type 2 Hypertension Hyperlipidemia -patient does not recall why/how he fell. reports these are episodes he has had for ~2 months, worked up by his doctors at [place] -daughter states she was told this is due to progression of lewy body dementia - as well as his globus sensation, weight loss, and confusion -even so, they state patient wasn't at baseline yesterday, has some improvement today -MRI of the brain: Multiple subdural hygromas, possible intracranial hypotension. -echo: Unremarkable. -CT abd/pelvis noted ductal dilatation and soft tissue density near pancreas -RUQ U/S ordered this AM - 3 cm mass at head of pancreas with dilatation of pancreatic duct and hepatic duct -patient and family (,daughter, [id number]) all report this is new information to them -alk phos minimally elevated on admission, Tbili: 1.1 - stable today -concerned for pancreatic cancer / if this is new, may continue to get worse wit h ductal obstruction, as well as contributing to patient's weight loss / loss of appetite, and overall failure to thrive -recommend further evaluation of mass, given the dilatation of duct. Recommend transfer to tertiary care center where GI / ERCP or other testing can be done that is not available here. Patient is [place] and needs to be transferred to [place] [facility]. -awaiting response from [facility] for transfer.
[2020-08-25] MEDS: GLUCERNA SHAKE 237 ML CAN PO SCH (21:00)
[2020-08-25] MEDS: MELATONIN 5 MG TABLET PO SCH (21:41)
[2020-08-26 01:43] VITALS: TEMP 97.6
[2020-08-26 06:15] LABS: Potassium 3.8 mmol/L (3.5-5.1)
[2020-08-26] MEDS: INSULIN -REGULAR HUMAN 50 UNIT/0.5 ML ML SQ SCH ×2 (07:30→11:30)
[2020-08-26] MEDS: GLUCERNA SHAKE 237 ML CAN PO SCH (09:00)
[2020-08-26] MEDS: ENOXAPARIN 40 MG/0.4 ML SQ SCH (09:26)
[2020-08-26] MEDS: METFORMIN HCL 500 MG TAB PO SCH (09:26)
[2020-08-26] MEDS: VITAMIN D 1000 UNIT TAB PO SCH (09:26)
[2020-08-26] MEDS: SERTRALINE HCL 100 MG TAB PO SCH (09:33)
[2020-08-26] MEDS: FUROSEMIDE 20 MG/ 2ML VIAL IV SCH (09:33)
[2020-08-26] MEDS: lisinopriL 10 MG TAB PO SCH (09:33)
[2020-08-26] MEDS: ASPIRIN EC 81 MG TAB PO SCH (09:33)
[2020-08-26] MEDS: FOLIC ACID 1 MG TABLET PO SCH (09:33)
[2020-08-26] MEDS: AMLODIPINE 5 MG TAB PO SCH (09:34)
[2020-08-26] MEDS: OXYBUTYNIN ER 5 MG TAB PO SCH (09:38)
[2020-08-26 10:02] VITALS: O2SAT 96
--- NOTE | 2020-08-26 12:12 | P.PN ---
Subjective Date of Service: 08/26/20 Primary Care Provider: Dr. trevor mcginnis Chief Complaint: syncope/fall Patient currently has no complain. He stated he ambulated in the hallway twice with physical therapy today. He is tolerating diet. He is ambulating with a walker. Physical Examination - Vital Signs Temperature: 97.6 F Blood Pressure: 127/65 Pulse: 79 Respirations: 16 Pulse Ox (%): 98 - Physical Exam General: In no apparent distress Neck: Supple Respiratory: Clear to auscultation bilaterally, Normal air movement Cardiovascular: No edema, Regular rate/rhythm, Normal S1 S2 Gastrointestinal: Normal bowel sounds, Soft and benign, Non-distended, No tenderness Musculoskeletal: No swelling, No tenderness Integumentary: No rashes Neurological: Normal strength at 5/5 x4 extr, Cranial nerves 3-12 intact Assessment And Plan Physician Review Additional Text: Physical Exam Gen: alert, oriented to self and place, NAD HEENT: MMM, EOMI, sclera anicteric CV: regular rate and rhythm, 1+ BLE edema Pulm: CTAB, no wheeze/rales/rhonchi, on room air Abd: soft, mild RUQ/epigastric tenderness Ext: 1+ BLE edema, no rash, no lesions Neuro: normal speech, normal strength b/l upper/lower extremities. +dementia and with some confusion Problem List: Fall-syncope Orthostatic hypotension Metabolic encephalopathy Elevated BNP Elevated troponin. Pancreatic and Hepatic duct dilatation, soft tissue density near pancreas Diabetes mellitus type 2 Hypertension Hyperlipidemia Lewy Body dementia -patient does not recall why/how he fell. reports these are episodes he has had for ~2 months, worked up by his doctors at [place] -daughter states she was told this is due to progression of lewy body dementia - as well as his globus sensation, weight loss, and confusion -MRI of the brain: Multiple subdural hygromas, possible intracranial hypotension. -patient is orthostatic and likely causing his falls. -echo: Unremarkable. -CT abd/pelvis noted ductal dilatation and soft tissue density near pancreas -RUQ U/S: 3 cm mass at head of pancreas with dilatation of pancreatic duct and hepatic duct -alk phos minimally elevated on admission, Tbili: 1.1 - stable today -concerned for pancreatic cancer. -Transfer to [place] initiated. Awaiting response from [place] hospital. -continue PT. -orthostatic precautions.
--- NOTE | 2020-08-26 14:59 | P.DS ---
Admission Date: 08/24/20 Discharge Date: 08/26/20 Primary Care Provider: Dr. trevor mcginnis Disposition: ROUTINE DISCHARGE Discharge Condition: FAIR Reason for Admission: syncope/fall Consultations: Cardiology-Dr. Middleton - Problems (1) Falls Status: Acute (2) Syncope Status: Acute (3) Pancreatic mass Status: Acute (4) Orthostasis Status: Acute (5) Metabolic encephalopathy Status: Acute (6) Lewy body dementia Status: Acute Brief History of Present Illness: 8-year-old woman with a history of DM type 2, hypertension, hyperlipidemia, Lewy body dementia was brought to the emergency department after a fall at home. Patient was also confused. Family reported multiple falls. CT head was negative for any acute findings. CT abdomen and pelvis was negative for any acute findings but demonstrated the pancreatic mass. Blood work unremarkable except mildly elevated troponin. Patient was hospitalized for further managem ent. Hospital Course: Patient admitted to the medical floor. Workup for syncope completed with echocardiogram, MRA of head and neck which were unremarkable. Echocardiogram showed normal EF. MRI of the brain was also performed which was negative for acute disease. Noted CT abdomen and pelvis reported dilated intrahepatic bile duct and pancreatic duct as well as soft tissue density which could probably be a pancreatic mass. [facility] was contacted for transfer for further evaluation to include ERCP. [facility] I may need to do the procedure as an outpatient. Patient seen and evaluated by physical therapy. He was able to ambulate several feet with a walker. Patient noted to have orthostasis. Patient and family have been taught orthostatic precautions. Patient is discharged to follow with the [facility] for further evaluation of the pancreatic lesion as an outpatient. Vital Signs/Physical Exam: Temp Pulse Resp BP Pulse Ox 97.6 F 79 16 127/65 98 08/26/20 12:12 08/26/20 12:12 08/26/20 12:12 08/26/20 12:12 08/26/20 12:12 General: Alert, In no apparent distress, Oriented x3 HEENT: Mucous membr. moist/pink Neck: Supple Respiratory: Clear to auscultation bilaterally, Normal air movement Cardiovascular: No edema, Regular rate/rhythm, Normal S1 S2 Gastrointestinal: Soft and benign, Non-distended, No tenderness Musculoskeletal: No swelling Integumentary: No rashes Neurological: Other (No focal motor deficit) Laboratory Data at Discharge: WBC 8.40 K/uL (4.3-10.9) D 08/25/20 06:12 Hgb 10.0 g/dL (13.6-17.9) L 08/25/20 06:12 Hct 28.7 % (39.6-49.0) L 08/25/20 06:12 Plt Count 240 K/uL (152-406) 08/25/20 06:12 PT 12.6 SECONDS (9.5-12.5) H 08/23/20 12:38 INR 1.09 08/23/20 12:38 Sodium 141 mmol/L (136-145) 08/26/20 05:46 Potassium 3.8 mmol/L (3.5-5.1) 08/26/20 05:46 BUN 16 mg/dL (7-18) 08/26/20 05:46 Creatinine 0.97 mg/dL (0.55-1.3) 08/26/20 05:46 Glucose 168 mg/dL (74-106) H 08/26/20 05:46 Magnesium 1.9 mg/dL (1.8-2.4) 08/25/20 06:12 Total Bilirubin 1.0 mg/dL (0.2-1.0) 08/25/20 06:12 AST 6 U/L (15-37) L 08/25/20 06:12 ALT 12 U/L (12-78) 08/25/20 06:12 Alkaline Phosphatase 97 U/L (45-117) 08/25/20 06:12 Troponin I 0.04 ng/mL (0.0-0.045) 08/24/20 18:05 Triglycerides 60 mg/dL (<150) 08/24/20 04:16 Cholesterol 115 mg/dL (<200) 08/24/20 04:16 HDL Cholesterol 49 mg/dL (40-60) 08/24/20 04:16 Cholesterol/HDL Ratio 2.35 08/24/20 04:16 Lipase 80 U/L (73-393) 08/23/20 12:38 Home Medications: Amlodipine Besylate 1 tab PO DAILY 08/23/20 Cholecalciferol (Vitamin D3) [Vitamin D3] 1 cap PO DAILY 08/23/20 Cyanocobalamin [Vitamin B-12*] 1 tab PO DAILY 08/23/20 Lisinopril [Zestril] 10 mg PO DAILY 08/23/20 Melatonin 2 tab PO BEDTIME 08/23/20 Metformin HCl 1,000 mg PO BID 08/23/20 Sertraline HCl 100 mg PO DAILY 08/23/20 Glucerna Shake [Glucerna*] 237 ml PO BID #60 can 08/26/20 New Medications: Glucerna Shake [Glucerna*] 237 ml PO BID #60 can Diet: ADA Activity: Fall precautions Followup: Unknown,U [Primary Care Provider] - 1 Week Time spent managing pt's care (in minutes): 40
[2020-08-26 17:01] VITALS: BP 124/65
[2020-08-26] MEDS ORDERED: POTASSIUM CL SA 10 MEQ TAB PO ONE (21:00)
--- NOTE | 2020-08-29 10:55 | CON ---
Date of Consultation: 08/24/2020 Reason For Consultation: Elevated troponin. History Of Present Illness: Mr. Bach is an 80-year-old male with history of hypertension, diabetes, dementia, hyperlipidemia, has had a history of cholecystectomy and prostate surgery in the past. He came in with a falling injury, in no actual syncope. The patient was complaining of headach e and hip pain but denied any chest pain. Denied any nausea, vomiting, diaphoresis, PND, orthopnea, pedal edema, palpitations, or syncope. Past Medical History: As stated earlier. Review of Systems: Negative. Social History: Negative. Family History: Negative. Allergies: NONE. Medications: Include amlodipine, vitamin D3, lisinopril, metformin, oxybutynin, and sertraline. Physical Examination: Vital Signs: Stable. He was afebrile. He was in sinus rhythm. He had an O2 saturation of 100% on room air. HEENT: Negative. Neck: Supple without any bruit, lymphadenopathy, JVD, or thyromegaly. Chest: Clear to auscultation and percussion. Cardiac: Revealed a regular rhythm and rate. No murmurs, gallops, or rubs. Abdomen: Benign. Extremities: Revealed no clubbing, cyanosis, or edema. Diagnostic Data: Revealed a glucose of 153, normal creatinine, normal hemoglobin, normal white count . Troponin was 0.04. He had an extensive workup including a chest x-ray, which was negative. He palacios d a neck MRA, which showed 50% blockage in the left carotid and brain MRI was done, which was negativ e for CVA. Echocardiogram, which was done, showed a normal ejection fraction with grade 1 diastolic dysfunction. Impression And Plan: 1.Fall unrelated to cardiac issues. 2.Minimally elevated troponin, not clinically significant. 3.Grade 1 diastolic dysfunction, asymptomatic. 4.Hypertension. 5.Dyslipidemia. 6.Diabetes. 7.Dementia. Considering all his workup, Mr. Bach need to go home. No other cardiac workup indicated. Continue present regimen. I will discuss the case further with Dr. Snyder. FREDA/MODL Voice ID: [id number] Report ID: [id number]
== END 2020-08-26 17:38 | disposition home or self-care (01) | DRG 56 ==
LOC: ER 10:55 → INTOOBSV 19:15 → OBSVTOIN 19:15 → ERHOLD 19:15 → 2ND 21:03 → OBSVTOIN 08-24 17:27
PROVIDERS: ADMIT Hospitalist; ATTEND Internal Medicine
DX: G31.83 Neurocognitive disorder with Lewy bodies (principal); G93.41 Metabolic encephalopathy; G96.08 Other cranial cerebrospinal fluid leak; I95.1 Orthostatic hypotension; F02.80 Dementia in other diseases classified elsewhere, unspecified severity, without behavioral disturbance, psychotic disturbance, mood disturbance, and anxiety; K86.9 Disease of pancreas, unspecified; E11.9 Type 2 diabetes mellitus without complications; I10 Essential (primary) hypertension; E78.5 Hyperlipidemia, unspecified; R77.8 Other specified abnormalities of plasma proteins; W18.30XA Fall on same level, unspecified, initial encounter; Z90.49 Acquired absence of other specified parts of digestive tract; Z79.84 Long term (current) use of oral hypoglycemic drugs; Z79.899 Other long term (current) drug therapy; Z20.822 Contact with and (suspected) exposure to COVID-19
CPT/HCPCS: 36415; 70450; 70544; 70549; 70553; 71045; 72125; 74177; 76700; 80048; 80053; 80061; 80076; 81003; 81015; 82550; 82947; 83036; 83690; 83735; 83880; 84132; 84439; 84443; 84484; 85025; 85610; 92610; 93005; 93306; 96374; 96375; 97112; 97116; 97161; 99285; A9577; G0378; J0360; J1650; J1940; J2405; J3475; J3480; J7040; Q9967; U0003

== ENCOUNTER 2020-09-02 12:16 | Emergency (ER) | payer OTHER ==
--- OUTSIDE RECORDS SUMMARY | 2020-09-02 12:18 | XMS REPORT | Continuity of Care Document ---
:1940 Author Organization [facility] t Address [address] [place] [address] Care Team Providers Name Role Phone Doctor Unassigned, [place] Attending Clinician Unavailable Norma CORONADO, Gene Attending [...] complicati 02:52:31 l on type DM w/o Home II, 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, uncontroll ed Active Diagnosis 03/07/2018 Ahmed Ahmed Nocturia Diagnosis Active 2018-03-07 M emoria 02:52:31 l Nocturia Beni n Active Diagnosis 03/07/2018 Ahmed Dextermed Anxiety Diagnosis Active 2018-03-07 Me moria 02:52:31 l Anxiety Home Active Diagnosis 03/07/2018 Ahmed Ahmed Pure Diagnosis [...] tablet Me moria 03-07 Ahmed l 02:52: Yohan 31 Metformin Yes Ahmed 1 tablet Mem oria HCl 03-07 Ahmed with meals l 02:52: Home 31 Amlodipine Yes Ahmed 1 tablet Me moria Besylate 03-07 Ahmed l 02:52: Atorvastati Yes Ahmed 1 tablet M emoria n Calcium 03-07 Ahmed l 02:52: Yohan 31 Sertraline Yes Ahmed 1 tablet Me moria HCl 03-07 Ahmed l 02:52: Home 31 Vitamin D3 Yes Ahmed not Memori a Complete 03-07 Ahmed defined l 02:52: Yohan 31 Donepezil Yes Ahmed 1 tablet Mem oria Hydrochlori 03-07 Ahmed at bedtime l de 02:52: Yohan Aspirin Yes Ahmed 1 tablet Memor ia 03-07 Ahmed l 02:52: Tamsulosin Yes Ahmed not Memori a HCl 03-07 Ahmed defined l 02:52: Yohan 31 Cyanocobala Yes Ahmed 1 tablet M emoria min 03-07 Ahmed l 02:52: Home 31 GlipiZIDE Yes Ahmed 1 tablet Mem oria 03-07 Ahmed l 02:52: Yohan Melatonin 0 Yes Ahmed 1 tablet Mem oria 03-07 Ahmed at bedtime l 02:52: as needed Yohan with food Finasteride Yes Ahmed 1 tablet M emoria 03-07 Ahmed l 02:52: Yohan 31 Vital Signs Vital Name Observation Time Observation Value Comments Source Weight 2018-01-02 16:15:00 [facility] Heart Rate 2018-01-02 16:15:00 [facility] Diastolic (mm Hg) 2018-01-02 16:15:00 [facility] Systolic (mm Hg) 2018-01-02 16:15:00 Yannick [facility] Yohan Weight 2017-12-18 20:15:00 [facility] Rate 2017-12-18 20:15:00 [facility] Diastolic (mm Hg) 2017-12-18 20:15:00 [facility] Home Systolic (mm Hg) 2017-12-18 20:15:00 Yannick rial Yohan Procedures This patient has no known procedures. Encounters Start End Encounter Admission Attending Care Care Encounter Source Date/Time Date/Time Type Type Clinicians Facility Department ID 2020-07-06 2020-07-06 Orders Doctor LOY [id number] 00:00:00 00:00:00 Only Unassigned, JOSÉ MANUEL [id number] [place] [facility] [id number] [facility] 2020-03-04 2020-03-04 Telephone [facility] [id number] 00:00:00 00:00:00 Karthikeyan Troy [id number] [place] [id number] Professio [id number] [address] 2020-03-03 2020-03-03 Office [facility] [id number] 08:02:33 09:14:39 Visit Karthikeyan Mukund [place] [id number] [place] [id number] Professio [id number] [address] 2018-01-02 2018-01-02 Outpatient Sukhwinder Pretty [id number] [facility] 11:15:00 11:15:00 [facility] 2017-12-18 2017-12-18 Outpatient Sukhwinder Pretty [id number] [facility] 15:15:00 15:15:00 [facility] Results This patient has no known results.
[2020-09-02 14:03] LABS: Absolute Lymphocytes (CBC) 0.5 K/uL (0.7-4.9); Basophils % 0.1 % (0-1.3); Lymphocytes % 6.4 % (15.3-44.8); RBC Red Blood Cell Count 3.65 M/uL (4.33-5.43)
[2020-09-02 14:04] LABS: Protime INR 1.05
--- NOTE | 2020-09-02 14:04 | RAD REPORT ---
EXAM DESCRIPTION: CT - Head Brain Wo Cont - 09/02/2020 1:53 pm CLINICAL HISTORY: Head injury status post fall COMPARISON: None TECHNIQUE: Computed axial tomography of the head was obtained. IV contrast was not requested. All CT scans are performed using dose optimization technique as appropriate and may include automated exposure control or mA/KV adjustment according to patient size. FINDINGS: Small to moderate subdural hematoma is present mostly along the left frontal convexity. It does extend into the left parietal convexity. It contains areas of increased and intermediate densit y. It has the appearance of an early subacute hematoma. There shift of midline structures 1 millimete r to the right. The ventricles are normal in caliber. Mild low-density areas within periventricular, deep and subcortical white matter likely represent isc hemic changes secondary to small vessel disease. Fluid within the sinuses/ mastoids is not seen. IMPRESSION: Small to moderate early subacute hematoma along the left cerebral convexity Benedict Page of the emergency room notified 1:55 p.m. September 02, 2020
--- NOTE | 2020-09-02 14:06 | RAD REPORT ---
EXAM DESCRIPTION: RAD - Chest Single View - 09/02/2020 1:41 pm CLINICAL HISTORY: weakness, fall, shortness of breath COMPARISON: Portable August 23 TECHNIQUE: AP portable chest image was obtained 09/02/2020 1:41 pm . FINDINGS: Lungs are clear. Heart and vasculature are normal. No measurable pleural effusion and no p neumothorax. There is a suspected nondisplaced anterior right sixth rib fracture and possibly the ant erior seventh rib. No acute aortic findings suspected. IMPRESSION: No acute lung parenchymal process. No pneumothorax or pleural effusion. Questionable anterior right sixth and seventh rib fractures.
[2020-09-02 14:13] LABS: ALT/SGPT 11 U/L (12-78); AST/SGOT 6 U/L (15-37); Albumin 2.6 g/dL (3.4-5.0); Alkaline Phosphatase 112 U/L (45-117); BUN Blood Urea Nitrogen 12 mg/dL (7-18); Bicarbonate 32 mmol/L (21-32); Bilirubin Direct 0.4 mg/dL (0-0.2); Glucose Level 180 mg/dL (74-106); Magnesium 1.8 mg/dL (1.8-2.4); NT PRO-BNP 3545 pg/mL (<450); Potassium 3.6 mmol/L (3.5-5.1); Sodium Level 140 mmol/L (136-145); Troponin (Emerg Dept Use Only) < 0.02 ng/mL (0.0-0.045)
[2020-09-02] MEDS ORDERED: NICARDIPINE HCL 25 MG in NA CHLORIDE 0.9% 240 ML IV PRN (14:21)
[2020-09-02] MEDS ORDERED: levETIRAcetam 1,000 MG in NA CHLORIDE 0.9% 100 ML IV ONE (14:30)
[2020-09-02] MEDS ORDERED: Nicardipine/NS 25 MG/250 ML KIT IV ONE (14:35)
[2020-09-02 15:04] LABS: Platelet Estimate ADEQ; White Blood Cell Scan OK (OK)
[2020-09-02 15:05] LABS: Blood Morphology Comment NOT SEEN (NOT SEEN)
--- NOTE | 2020-09-02 15:29 | EDPHYS ---
Physician Documentation [facility] Name: Nash Bach Sr Age: 80 yrs Sex: Male : 1940 Arrival Date: 09/02/2020 Time: 12:18 Bed 19 Private MD: ED Physician David Franco HPI: 09/02 13:30 This 80 yrs old Male presents to ER via EMS with complaints of Vomiting. cp 13:30 The patient's problem is reported as weakness, that is generalized. Onset: The cp symptoms/episode began/occurred gradually. Duration: The episode is continuous. 13:30 Context: Possible contributing factors include: unknown. Associated signs and symptoms: cp Pertinent positives: reports patient has been vomiting today, Pertinent negatives: abdominal pain, chest pain, confusion. Severity of symptoms: in the emergency department the symptoms are unchanged despite EMS interventions. Patient's baseline: Neuro: alert but confused, Motor: no deficits, Ambulation: walks without assistance, Speech: normal. Historical: - Allergies: 12:29 No Known Allergies; tw2 - Home Meds: 12:29 amlodipine 5 mg tab 1 tab once daily [Active]; cholecalciferol (vitamin D3) 50,000 unit tw2 Oral cap [Active]; diabetes medicine, dementia medication, high blood pressure, cholesterol, [Active]; lisinopril 10 mg Oral tab 1 tab once daily [Active]; metformin 1,000 mg Oral tab 1 tab 2 times per day [Active]; oxybutynin chloride 15 mg Oral tr24 [Active]; sertraline 100 mg Oral tab 1 tab once daily [Active]; - PMHx: 12:29 Dementia; Diabetes - NIDDM; Hyperlipidemia; Hypertension; tw2 - Immunization history:: Adult Immunizations. - Social history:: Smoking status: . ROS: 13:35 Constitutional: Negative for fever, poor PO intake. cp 13:35 Eyes: Negative for injury, pain, redness, and discharge. cp 13:35 ENT: Negative for ear pain, sore throat, difficulty swallowing, difficulty handling secretions. 13:35 Cardiovascular: Negative for chest pain, edema. 13:35 Respiratory: Negative for cough, shortness of breath, wheezing. 13:35 Abdomen/GI: Negative for abdominal pain, diarrhea, constipation, active vomiting. 13:35 Neuro: Positive for weakness, Negative for altered mental status. 13:35 All other systems are negative. Exam: 13:40 Constitutional: The patient appears in no acute distress, alert, awake, cp non-diaphoretic, non-toxic, well developed, frail. 13:40 Head/Face: Normocephalic, atraumatic. cp 13:40 Eyes: Periorbital structures: appear normal, Pupils: equal, round, and reactive to light and accomodation, Extraocular movements: intact throughout, Conjunctiva: normal, no exudate, no injection, Sclera: no appreciated abnormality, Lids and lashes: appear normal, bilaterally. 13:40 ENT: External ear(s): are unremarkable, Nose: is normal, Mouth: Lips: moist, Oral mucosa: moist, Posterior pharynx: Airway: no evidence of obstruction, patent. 13:40 Neck: C-spine: vertebral tenderness, is not appreciated, crepitus, is not appreciated, ROM/movement: is normal, is supple, without pain, no range of motions limitations. 13:40 Chest/axilla: Inspection: normal, Palpation: is normal, no crepitus, no tenderness. 13:40 Cardiovascular: Rate: normal, Rhythm: regular, Pulses: Pulses are 2+ in right radial artery and left radial artery. Edema: is not appreciated, JVD: is not appreciated. 13:40 Respiratory: the patient does not display signs of respiratory distress, Respirations: normal, no use of accessory muscles, no retractions, labored breathing, is not present, Breath sounds: are clear throughout, no decreased breath sounds. 13:40 Abdomen/GI: Inspection: abdomen appears normal, Palpation: abdomen is soft and non-tender, in all quadrants. 13:40 Back: pain, is absent, ROM is normal. 13:40 Neuro: Orientation: to person, situation, Mentation: able to follow commands, slow to respond, Motor: moves all fours, general weakness with no focal deficits, Sensation: no obvious gross deficits. 14:05 ECG was reviewed by the Attending Physician. cp 14:05 Radiologist reports: left subacute subdural hematoma with 1 mm shift to right cp Vital Signs: 12:20 BP 175 / 86; Pulse 72; Resp 17; Temp 97.9(O); Pulse Ox 98% ; Weight 47.63 kg; Height 5 tw2 ft. 5 in. (165.10 cm) (R); Pain 0/10; 13:25 BP 166 / 94; Pulse 74; Resp 17; Pulse Ox 100% on R/A; tw2 14:30 BP 191 / 78; Pulse 73; Resp 17; Pulse Ox 99% on R/A; tw2 14:45 BP 150 / 66; Pulse 73; Resp 24; Pulse Ox 100% on R/A; tw2 14:50 BP 150 / 69; Pulse 72; Resp 20; Pulse Ox 100% on R/A; tw2 14:59 BP 135 / 68; Pulse 76; Resp 14; Pulse Ox 100% on R/A; tw2 15:08 BP 138 / 62; Pulse 81; Resp 21; Pulse Ox 100% on R/A; tw2 15:20 BP 133 / 65; Pulse 89; Resp 20; Pulse Ox 100% on R/A; tw2 15:30 BP 133 / 71; Pulse 87; Resp 17; Pulse Ox 100% on R/A; tw2 15:40 BP 140 / 69; Pulse 87; Resp 17; Pulse Ox 100% on R/A; tw2 15:50 BP 124 / 66; Pulse 82; Resp 17; Pulse Ox 100% on R/A; tw2 15:57 BP 124 / 68; Pulse 83; Resp 13; Pulse Ox 100% on R/A; tw2 16:10 BP 140 / 69; Pulse 86; Resp 17; Pulse Ox 99% on R/A; tw2 16:24 BP 124 / 66; Pulse 85; Resp 17; Pulse Ox 99% on R/A; tw2 12:20 Body Mass Index 17.47 (47.63 kg, 165.10 cm) tw2 MDM: 13:22 Patient medically screened. cp 13:30 Differential diagnosis: CVA, TIA, metabolic disorder, drug effects, cardiac arrythmia, cp acute OH. 15:15 Data reviewed: vital signs, nurses notes, lab test result(s), EKG, radiologic studies, cp CT scan, I have discussed the patient's presentation/case with the attending Emergency Department Physician;. 15:15 Test interpretation: by ED physician or midlevel provider: ECG. Counseling: I had a cp detailed discussion with the patient and/or guardian regarding: the historical points, exam findings, and any diagnostic results supporting the discharge/admit diagnosis, lab results, radiology results, the need to transfer to another facility, for higher level of care, [facility] does not immediately have the required specialist. 09/02 13:25 Order name: Basic Metabolic Panel 09/02 13:25 Order name: CBC with Diff cp 09/02 13:25 Order name: LFT's cp 09/02 13:25 Order name: Magnesium; Complete Time: 14:26 cp 09/02 13:25 Order name: NT PRO-BNP; Complete Time: 14:26 cp 09/02 13:25 Order name: PT-INR; Complete Time: 17:50 cp 09/02 13:25 Order name: Troponin (emerg Dept Use Only); Complete Time: 14:26 cp 09/02 13:26 Order name: Basic Metabolic Panel; Complete Time: 14:26 EDMS 09/02 13:26 Order name: CBC with Automated Diff; Complete Time: 17:50 EDMS 09/02 13:26 Order name: Liver (Hepatic) Function; Complete Time: 14:26 EDMS 09/02 15:04 Order name: CBC Smear Scan; Complete Time: 17:50 EDMS 09/02 16:22 Order name: SARS-COV-2 RT PCR; Complete Time: 17:50 EDMS 09/02 13:25 Order name: XRAY Chest (1 view); Complete Time: 14:26 cp 09/02 13:25 Order name: EKG; Complete Time: 13:27 cp 09/02 13:25 Order name: Cardiac monitoring; Complete Time: 15:51 09/02 13:25 Order name: EKG - Nurse/Tech; Complete Time: 14:04 cp 09/02 13:25 Order name: IV Saline Lock; Complete Time: 14:04 cp 09/02 13:25 Order name: Labs collected and sent; Complete Time: 14:04 cp 09/02 13:25 Order name: O2 Per Protocol; Complete Time: 13:26 cp 09/02 13:25 Order name: O2 Sat Monitoring; Complete Time: 13:26 cp 09/02 13:25 Order name: CT Head Brain wo Cont; Complete Time: 14:26 09/02 14:41 Interpretation: Report reviewed. 09/02 13:26 Order name: Social Service Consult EDMS EC:05 Rate is 71 beats/min. Rhythm is regular. AL interval is normal. QRS interval is normal. cp QT interval is normal. Interpreted by me. Reviewed by me. Administered Medications: 14:25 Drug: niCARdipine (25mg/250ml) 5 mg/hr Route: IV; Rate: calculated rate; Site: right tw2 antecubital; 14:40 Follow up: Rate change 7.5 mg/hr tw2 16:26 Follow up: IV Status: Infusion continued upon transfer tw2 14:55 Drug: Keppra 1000 mg Route: IV; Rate: calculated rate; Site: left antecubital; tw2 15:10 Follow up: IV Status: Completed infusion; IV Intake: 50ml tw2 Disposition: 17:56 Co-signature as Attending Physician, David Franco MD available for consultation at ps1 all times. Signature for administrative purposes. Did not see or evaluate the patient unless otherwise noted. . Disposition: 09/02/20 15:[address] [facility]. Diagnosis is Subdural Hemorrhage. - Reason for transfer: Higher level of care. - Accepting physician is DR Gary. - Condition is Stable. - Problem is new. - Symptoms have improved. Signatures: Dispatcher [employer] [facility] Petros Magdaleno PA PA m Bairon Waters PA PA cp Wise, Tara, ERIKA RN tw2 David Franco MD MD ps1 Corrections: (The following items were deleted from the chart) 15:35 14:35 CORONAVIRUS+MR.LAB.BRZ ordered. EDNH EDMS 16:26 15:28 09/02/2020 15:[address] [facility]. tw2 Diagnosis is Subdural Hemorrhage. Reason for transfer: Higher level of care. Accepting physician is DR Gary. Condition is Stable. Problem is new. Symptoms have improved. cp
--- NOTE | 2020-09-02 15:29 | ER ---
Nurse's Notes [facility] Name: Nash Bach Sr Age: 80 yrs Sex: Male : 1940 Arrival Date: 09/02/2020 Time: 12:18 Bed 19 Private MD: Diagnosis: Subdural Hemorrhage Presentation: 09/02 12:20 Chief complaint: EMS states: pt from home, states he fell last Monday was discharged tw2 Monday, called today because he was vomiting and she basically told us she cannot handle taking care of him anymore,she has health issues as well and she was weeping that she cant take care of him and [facility]. vs stable for us, they [place] but requested this facility because he was here last week. Coronavirus screen: vomiting. Client presents with at least one sign or symptom that may indicate coronavirus-19. Standard/surgical mask placed on the client. Provider contacted for isolation considerations. Ebola Screen: Patient denies travel to an Ebola-affected area in the 21 days before illness onset. Initial Sepsis Screen: Does the patient meet any 2 criteria? No. Patient's initial sepsis screen is negative. Does the patient have a suspected source of infection? No. Patient's initial sepsis screen is negative. Risk Assessment: Do you want to hurt yourself or someone else? Patient reports no desire to harm self or others. Onset of symptoms was September 02, 2020. 12:20 Method Of Arrival: EMS: [facility] tw2 12:20 Acuity: HILDA 3 tw2 Triage Assessment: 12:29 General: Appears in no apparent distress. slender, Behavior is calm, cooperative, tw2 appropriate for age. Pain: Denies pain. EENT: No signs and/or symptoms were reported regarding the EENT system. Neuro: Level of Consciousness is awake, alert, obeys commands, Oriented to person, place, time, situation. Cardiovascular: Patient's skin is warm and dry. Respiratory: Airway is patent Respiratory effort is even, unlabored, Respiratory pattern is regular, symmetrical. GI: Abdomen is flat, Reports vomiting. : No signs and/or symptoms were reported regarding the genitourinary system. pt is in a brief that appears saturated at this time. Derm: No signs and/or symptoms reported regarding the dermatologic system. Skin is fragile, is thin, with poor turgor Skin is dry, Skin temperature is warm. Musculoskeletal: Range of motion: intact in all extremities. Historical: - Allergies: 12:29 No Known Allergies; tw2 - Home Meds: 12:29 amlodipine 5 mg tab 1 tab once daily [Active]; cholecalciferol (vitamin D3) 50,000 unit tw2 Oral cap [Active]; diabetes medicine, dementia medication, high blood pressure, cholesterol, [Active]; lisinopril 10 mg Oral tab 1 tab once daily [Active]; metformin 1,000 mg Oral tab 1 tab 2 times per day [Active]; oxybutynin chloride 15 mg Oral tr24 [Active]; sertraline 100 mg Oral tab 1 tab once daily [Active]; - PMHx: 12:29 Dementia; Diabetes - NIDDM; Hyperlipidemia; Hypertension; tw2 - Immunization history:: Adult Immunizations. - Social history:: Smoking status: . Screenin:32 Abuse screen: Denies threats or abuse. Nutritional screening: No deficits noted. tw2 Tuberculosis screening: No symptoms or risk factors identified. Fall Risk Secondary diagnosis (15 points) impaired mobility. Assessment: 13:20 Reassessment: see triage assessment. tw2 13:25 Reassessment: Patient appears in no apparent distress at this time. No changes from tw2 previously documented assessment. Patient and/or family updated on plan of care and expected duration. Pain level reassessed. Patient is alert, oriented x 3, equal unlabored respirations, skin warm/dry/pink. 14:30 Reassessment: Patient appears in no apparent distress at this time. No changes from tw2 previously documented assessment. Patient and/or family updated on plan of care and expected duration. Pain level reassessed. Patient is alert, oriented x 3, equal unlabored respirations, skin warm/dry/pink. 14:45 Reassessment: pts family at bedside at this time, provider notified. tw2 15:00 Reassessment: pts spouse and son at bedside have noted steady decline in pts ability to tw2 do adl's or ability to feed himself at home since he came home last Monday from the hospital. 15:24 Reassessment: Patient appears in no apparent distress at this time. No changes from tw2 previously documented assessment. Patient and/or family updated on plan of care and expected duration. Pain level reassessed. Patient is alert, oriented x 3, equal unlabored respirations, skin warm/dry/pink. 16:25 Reassessment: Patient appears in no apparent distress at this time. No changes from tw2 previously documented assessment. Patient and/or family updated on plan of care and expected duration. Pain level reassessed. Patient is alert, oriented x 3, equal unlabored respirations, skin warm/dry/pink. Vital Signs: 12:20 BP 175 / 86; Pulse 72; Resp 17; Temp 97.9(O); Pulse Ox 98% ; Weight 47.63 kg; Height 5 tw2 ft. 5 in. (165.10 cm) (R); Pain 0/10; 13:25 BP 166 / 94; Pulse 74; Resp 17; Pulse Ox 100% on R/A; tw2 14:30 BP 191 / 78; Pulse 73; Resp 17; Pulse Ox 99% on R/A; tw2 14:45 BP 150 / 66; Pulse 73; Resp 24; Pulse Ox 100% on R/A; tw2 14:50 BP 150 / 69; Pulse 72; Resp 20; Pulse Ox 100% on R/A; tw2 14:59 BP 135 / 68; Pulse 76; Resp 14; Pulse Ox 100% on R/A; tw2 15:08 BP 138 / 62; Pulse 81; Resp 21; Pulse Ox 100% on R/A; tw2 15:20 BP 133 / 65; Pulse 89; Resp 20; Pulse Ox 100% on R/A; tw2 15:30 BP 133 / 71; Pulse 87; Resp 17; Pulse Ox 100% on R/A; tw2 15:40 BP 140 / 69; Pulse 87; Resp 17; Pulse Ox 100% on R/A; tw2 15:50 BP 124 / 66; Pulse 82; Resp 17; Pulse Ox 100% on R/A; tw2 15:57 BP 124 / 68; Pulse 83; Resp 13; Pulse Ox 100% on R/A; tw2 16:10 BP 140 / 69; Pulse 86; Resp 17; Pulse Ox 99% on R/A; tw2 16:24 BP 124 / 66; Pulse 85; Resp 17; Pulse Ox 99% on R/A; tw2 12:20 Body Mass Index 17.47 (47.63 kg, 165.10 cm) tw2 ED Course: 12:18 Patient arrived in ED. tw2 12:18 Arm band placed on. tw2 12:20 Milena Lomas, RN is Primary Nurse. tw2 12:20 Bed in low position. Side rails up X2. Pulse ox on. NIBP on. Warm blanket given. tw2 12:28 Triage completed. tw2 13:17 Bairon Waters PA is PHCP. cp 13:17 David Franco MD is Attending Physician. cp 13:41 XRAY Chest (1 view) In Process Unspecified. EDMS 13:51 CT Head Brain wo Cont In Process Unspecified. EDMS 14:29 Initiated transfer to [facility]. mt 14:30 Awaiting: medication from pharmacy. tw2 14:37 Inserted saline lock: 18 gauge in left antecubital area, using aseptic technique. dh4 14:40 initiated transfer to [facility]. mt 14:45 Dr eleanor Wall report with [facility] Physician. mt 14:46 Dr eleanor Wall report with [facility]. mt 14:46 Admin approval given by Lucy Parada to room 7S4 Bed 7410 at [facility] to DR. eva Gary. 15:22 Maintain EMS IV. Dressing intact. Good blood return noted. Site clean \T\ dry. Gauge \T\ tw 2 site: 20 g LEFT AC. 15:24 LFT's Sent. sv 15:24 CBC with Diff Sent. sv 15:24 Basic Metabolic Panel Sent. sv 15:40 contacted [facility] for transport request, 20 min ETA. mt 16:24 No provider procedures requiring assistance completed. Patient transferred, IV remains tw2 in place. Administered Medications: 14:25 Drug: niCARdipine (25mg/250ml) 5 mg/hr Route: IV; Rate: calculated rate; Site: right tw2 antecubital; 14:40 Follow up: Rate change 7.5 mg/hr tw2 16:26 Follow up: IV Status: Infusion continued upon transfer tw2 14:55 Drug: Keppra 1000 mg Route: IV; Rate: calculated rate; Site: left antecubital; tw2 15:10 Follow up: IV Status: Completed infusion; IV Intake: 50ml tw2 Intake: 15:10 IV: 50ml; Total: 50ml. tw2 Outcome: 15:28 ER care complete, transfer ordered by MD. joe 16:25 Transferred by ground EMS to [facility]. tw2 16:25 Condition: stable 16:25 Instructed on the need for transfer. 16:26 Patient left the ED. tw2 Signatures: Dispatcher [employer] Gladys Beauchamp RN RN sv Page, Corey, PA PA cp Wise, Tara, RN RN 2 Frances Pereira mt, Donald counts include 234 beds at the [facility] Corrections: (The following items were deleted from the chart) 16:25 16:24 BP 140 / 69; Pulse 86bpm; Resp 17bpm; Pulse Ox 99% RA; tw2 tw2
[2020-09-02 16:32] VITALS: TEMP 97.9
[2020-09-02 16:48] VITALS: O2SAT 99
[2020-09-02 16:49] VITALS: BP 124/66
== END 2020-09-02 16:26 | disposition short-term general hospital (02) ==
LOC: ER 12:16
DX: I62.00 Nontraumatic subdural hemorrhage, unspecified (principal); Z20.822 Contact with and (suspected) exposure to COVID-19; E11.9 Type 2 diabetes mellitus without complications; I10 Essential (primary) hypertension; E78.5 Hyperlipidemia, unspecified; Z79.84 Long term (current) use of oral hypoglycemic drugs; F03.90 Unspecified dementia, unspecified severity, without behavioral disturbance, psychotic disturbance, mood disturbance, and anxiety
CPT/HCPCS: 96365; 93005; 85025; 80048; 36415; 83735; 85610; 80076; 84484; 83880; 70450; 71045; 96375; 99285; 96366; U0003; J1953